=== PATIENT | female | born 1990 | race Caucasian/White ===

== ENCOUNTER 2019-09-14 08:12 | Emergency (ER) | payer SELFPAY ==
--- NOTE | ~2019-09-14 | CT_ITS ---
EXAMINATION: CT abdomen pelvis w con DATE: 09/14/2019 09:38 INDICATION: Right-sided abdominal pain TECHNIQUE: Computed tomography (CT) of the abdomen and pelvis was performed with 100 cc Omnipaque 350 intravenous contrast. The dose-length product was 1586.14 mGy-cm. Automated exposure control and ite rative reconstruction technique were employed. COMPARISON: CT dated 04/13/2014 FINDINGS: Patchy bilateral lower lobe airspace disease. Heart size normal. No significant pleural or pericardial effusion. Gallbladder is distended with gallstones. No significant biliary dilatation. The liver, spleen, pancr eas, adrenal glands and kidneys are unremarkable. Normal appendix. Nonobstructive bowel gas pattern. There are mildly prominent ileocolic mesenteric lymph nodes, likely reactive. No free air or free flu id. No significant vascular abnormality. Normal appendix. IMPRESSION: 1. Cholelithiasis with mild gallbladder distention. Consider cholecystitis in the appropriate clinica l setting. 2: Bibasilar airspace disease which may represent atelectasis or developing pneumonia. Reviewed, dictated and finalized at location A. IMPRESSION: 1. Cholelithiasis with mild gallbladder distention. Consider cholecystitis in t he appropriate clinical setting. 2: Bibasilar airspace disease which may represent atelectasis or developing pne umonia.
[2019-09-14 08:16] VITALS: BP 155/97; PULSE 89; RESP 20; TEMP 36.8; O2SAT 100
--- NOTE | 2019-09-14 08:16 | ED.ABDPAIN ---
HPI - Abdominal Pain General Chief Complaint: Abdominal Pain Stated Complaint: Abd pain Time Seen by Provider: 09/14/19 08:16 History of Present Illness HPI narrative: Awoken from sleep by right sided abdominal pain this morning. The pain is severe. Feels like a cramp or sore muscle. The pain is severe. Associated with vomiting x1. She has never had this pain before. No previous abdominal surgery. She denies any active medical problems or home medications. Related Data Allergies Allergy/AdvReac Type Severity Reaction Status Date / Time No Known Allergies Allergy Unverified 09/14/19 08:20 Review of Systems Review of Systems: All systems reviewed & are unremarkable except as noted in HPI and below Constitutional: Constitutional: Denies fever(s) Eyes: Eyes: Reports no additional eye complaints ENT: Reports system reviewed and no additional complaints, except as documented Cardiovascular: Cardiovascular: Denies chest pain Respiratory: Respiratory: Denies dyspnea Gastrointestinal: Gastrointestinal: Reports abdominal pain, Denies constipation, Denies diarrhea, Reports nausea and Reports vomiting Genitourinary: Genitourinary: Denies hematuria and Denies dysuria Musculoskeletal: Musculoskeletal: Reports back pain Neurologic: Denies dizziness and Denies weakness Endocrine: Endocrine: Denies polydipsia and Denies polyuria Exam Const: General: alert Nutritional Appearance: obese Orientation/consciousness: patient oriented x3 Other: Mild distress, tearful HENMT: Head: normal to inspection Resp: Effort & Inspection: normal respiratory effort Auscultation: clear to auscultation bilaterally Cardio: Rate: regular rate Rhythm: regular rhythm GI: GI Palp: Yes Soft to palpation, No Tenderness to palpation present (GI) and No Guarding due to palpation present (GI) Skin: General skin exam: normal color Neuro: General: patient oriented x3, moves all extremities and no focal motor deficits Speech: normal speech Extrem: General: normal to inspection Psych: Affect: Anxious affect present Course Vital Signs Vital signs: Vital Signs Temperature 36.8 C 09/14/19 08:16 Pulse Rate 89 09/14/19 08:16 Respiratory Rate 20 09/14/19 08:16 Blood Pressure 155/97 H 09/14/19 08:16 Pulse Oximetry 100 09/14/19 08:16 Temperature 36.6 C 09/14/19 11:00 Pulse Rate 71 09/14/19 11:00 Respiratory Rate 16 09/14/19 11:00 Blood Pressure 121/89 09/14/19 11:00 Pulse Oximetry 99 09/14/19 11:00 MDM - Abdominal Pain MDM Narrative Medical decision making narrative: CT shows dilation of the gallbladder with stones. No elevation in white count or fever. Discussed admission versus symptomatic treatment, low fat diet and surgery follow-up. She said that she would prefer to go home. Differential Diagnosis Differential diagnosis: Likely acute appendicitis, calculus of kidney, pancreatitis and other (Acute cholecystitis, cholelithiasis, ) Medical Records Attestation: I reviewed the patient's medical records. Lab Data Attestation: I reviewed the patient's lab results. Result diagrams: 09/14/19 08:36 09/14/19 08:36 Labs: Lab Results 09/14/19 09/14/19 09/14/19 Range/Units 08:36 08:36 09:01 WBC 9.6 (4.5-10.0) K/mm3 RBC 4.49 (4.2-5.4) M/mm3 Hgb 12.6 (12.0-15.0) g/dL Hct 39.9 (37.0-47.0) % MCV 88.9 (80-100) fl MCH 28.1 (26-34) pg MCHC 31.6 L (32-36) g/dl RDW 12.9 (11.5-14.5) % Plt Count 363 (150-375) k/mm3 MPV 9.9 (7.4-10.4) fl Immature Gran % (Auto) 0.3 (0-0.5) % Neut % (Auto) 64.5 (45.5-73.1) % Lymph % (Auto) 26.1 (18.3-44.2) % [place] % (Auto) 6.5 (2.6-8.5) % Eos % (Auto) 2.1 (0-4.4) % Baso % (Auto) 0.5 (0.2-1.2) % Lymph # (Auto) 2.49 (0.9-3.2) K/mm3 [place] # (Auto) 0.6 (0.1-0.6) K/mm3 Eos # (Auto) 0.2 (0-0.3) K/mm3 Baso # (Auto) 0.1 (0.0-0.1) K/mm3 Abs Immat Gran (auto) 0.03
[2019-09-14] MEDS: ONDANSETRON INJ 4 MG/2 ML VIAL IV PUSH (08:35)
[2019-09-14 08:43] LABS: Basophils Absolute Auto 0.1 K/mm3 (0.0-0.1); Basophils Percent Auto 0.5 % (0.2-1.2); Eosinophils Absolute Auto 0.2 K/mm3 (0-0.3); Eosinophils Percent Auto 2.1 % (0-4.4); Hematocrit 39.9 % (37.0-47.0); Hemoglobin 12.6 g/dL (12.0-15.0); Immature Granulocyte Absolute 0.03 K/mm3 (0.00-0.031); Immature Granulocyte Percent A 0.3 % (0-0.5); Lymphocytes Absolute Auto 2.49 K/mm3 (0.9-3.2); Lymphocytes Percent Auto 26.1 % (18.3-44.2); Mean Corpuscular HGB Conc 31.6 g/dl (32-36); Mean Corpuscular Hemoglobin 28.1 pg (26-34); Mean Corpuscular Volume 88.9 fl (80-100); Mean Platelet Volume 9.9 fl (7.4-10.4); Monocytes Absolute Auto 0.6 K/mm3 (0.1-0.6); Monocytes Percent Auto 6.5 % (2.6-8.5); Neutrophils Absolute Auto 6.2 K/mm3 (1.3-6.7); Neutrophils Percent Auto 64.5 % (45.5-73.1); Platelet Count Result 363 k/mm3 (150-375); Red Blood Count 4.49 M/mm3 (4.2-5.4); Red Cell Distribution Width 12.9 % (11.5-14.5); White Blood Count 9.6 K/mm3 (4.5-10.0)
[2019-09-14 08:55] LABS: Alanine Aminotransferase 12 U/L (4-35); Albumin Level 4.2 g/dL (3.5-5.1); Alkaline Phosphatase 66 U/L (38-126); Aspartate Amino Transferase 18 U/L (14-36); Bilirubin,Total 0.2 mg/dL (0.2-1.3); Blood Urea Nitrogen 16 mg/dL (7-17); Calcium 8.9 mg/dL (8.4-10.2); Carbon Dioxide 26 mmol/L (22-30); Chloride 105 mmol/L (98-107); Estimated CRCL calculation 142 ml/min; Estimated Glomerular Filt Rate > 60; Glucose 114 mg/dL (65-105); Lipase 86 U/L (23-300); Potassium 4.1 mmol/L (3.4-5.0); Sodium 137 mmol/L (137-145)
[2019-09-14 09:12] LABS: Add Urine Microscopic? YES; Appearance Urine Cloudy (Clear); Bacteria Urine Trace /hpf; Bilirubin Urine Negative (Negative); Blood Urine Negative (Negative); Color Urine Yellow (Yellow); Glucose Urine UA Negative (Negative); Ketones Urine Negative (Negative); Leukocyte Esterase Ur 3+ LEU/UL (Negative); Mucus Urine Rare /lpf; Nitrate Urine Negative (Negative); Protein Urine 1+ mg/dL (Negative); Specific Grav Ur 1.025 (1.001-1.035); Squamous Epithelial Cell Urine Many /hpf (Few); Urobilinogen Urine Negative mg/dL (<2.0); WBC Urine 16-20 /hpf
[2019-09-14 09:48] VITALS: BP 112/67; PULSE 98; RESP 20; O2SAT 97
[2019-09-14] MEDS: MORPHINE SULFATE 4 MG/ML INJ IV PUSH (09:58)
[2019-09-14 11:00] VITALS: BP 121/89; PULSE 71; RESP 16; TEMP 36.6; O2SAT 99
== END 2019-09-14 11:00 | disposition home or self-care (01) ==
PROVIDERS: Emergency Provider Emergency Medicine
DX: K80.20 Calculus of gallbladder without cholecystitis without obstruction (principal); R91.8 Other nonspecific abnormal finding of lung field
CPT/HCPCS: 36415; 74177; 80053; 81001; 81025; 83690; 85025; 87086; 87088; 96374; 96375; 99284; J2270; J2405; J3010; Q9967

== ENCOUNTER 2019-11-17 10:37 | Emergency (ER) | payer SELFPAY ==
--- NOTE | 2019-11-17 11:08 | ED.GENADULT ---
HPI - General Adult General Chief complaint: Eye Problems Stated complaint: eye issues Time Seen by Provider: 11/17/19 11:20 Source: patient Mode of arrival: ambulatory Limitations: no limitations History of Present Illness HPI narrative: 29-year-old female patient presents to the [facility] with complaints of acute left eye pain. Patient states that she got into her car in her garage and went to go and pull out and as soon as the light hit her left eye she immediately started having pain, watering and a lot of sensitivity to light. Patient states that she does wear contacts and put a new set in about a week ago. Patient states that she did take out her contacts hoping that that would decrease her symptoms but states that her symptoms have not gotten any better. Patient states she has had a lot of pain, causing a headache, watery eyes and a lot of sensitivity to the light. Related Data Home Medications Medication Instructions Recorded Confirmed No Home Medications 11/17/19 11/17/19 Allergies Allergy/AdvReac Type Severity Reaction Status Date / Time No Known Allergies Allergy Verified 11/17/19 11:06 Review of Systems Review of Systems: Narrative: CONSTITUTIONAL: Denies fever, chills, or sweats. EYES: Positive left eye visual changes, redness, pain and clear discharge. ENT: Denies rhinorrhea, congestion, sore throat, or otalgia. CARDIOVASCULAR: Denies chest pain, palpitations, or edema. RESPIRATORY: Denies cough or dyspnea. GASTROINTESTINAL: Denies abdominal pain, nausea, vomiting, or diarrhea. GENITOURINARY: Denies dysuria or hematuria. SKIN: Denies rash or itching. MUSCULOSKELETAL: Denies back pain, joint pain, or myalgia. NEUROLOGIC: Denies headache, numbness, or weakness. PSYCHIATRIC: Denies anxiety or depression. [facility] Surgical History Surgical History History of tonsillectomy Family History Family History Unknown Hypertension Diabetes mellitus Cerebrovascular accident Social History Social History Smoking status: Never smoker Alcohol intake: current Additional occupation/education comments: self-employed Gender identity (if verbalized by the patient): Male Comments At the time of my signature I agree with nursing past medical history, surgical, social, and family history. There is no relevant family history pertinent to the presenting complaint. Exam Narrative: Exam Narrative: GENERAL: Well-appearing, well-nourished, and in no acute distress. HEAD: Normocephalic, atraumatic. EYES: PERRLA and EOM intact without limitation of have complaint of pain to the left eye, no periorbital soft tissue swelling ,no erythema, warmth or tenderness noted, no obvious deformity. No crusting or swelling.clear tearing from left eye.severe and painful photophobia. No nystagmus No FB or lesion on lid eversion. Corneas grossly clear, no obvious FB or hyphens/hypopyon. injection to sclera. Lids and lashes clear. The left eye was dyed and there was no obvious corneal abrasions or foreign body noted under the Browning lamp. ENT: Nares clear, no rhinorrhea or epistaxis. Mucous membranes moist. NECK: Supple. No lymphadenopathy CHEST: Clear to auscultation. No respiratory distress. HEART: Regular rate and rhythm. No murmur heard. Normal peripheral pulses. ABDOMEN: Soft, nontender, nondistended, normal active bowel sounds. EXTREMITIES: Normal range of motion. No edema. SKIN: Warm, dry, no rash. NEURO: No focal deficits. Alert and oriented x3. Course Vital Signs Vital signs: Vital Signs Temperature 36.2 C L 11/17/19 11:17 Pulse Rate 88 11/17/19 11:17 Respiratory Rate 16 11/17/19 11:17 Blood Pressure 120/78 11/17/19 11:17 Pulse Oximetry 98 11/17/19 11:17 Temperature 36.2 C L 11/17/19 11:17 Pulse Rate 88 11/17/19 11:17 Respirato
[2019-11-17 11:17] VITALS: BP 120/78; PULSE 88; RESP 16; TEMP 36.2; O2SAT 98
== END 2019-11-17 11:42 | disposition home or self-care (01) ==
PROVIDERS: Emergency Provider Nurse Practitioner Family
DX: H57.12 Ocular pain, left eye (principal)
CPT/HCPCS: 99213; A9270; G0463

== ENCOUNTER 2019-11-17 12:06 | Emergency (ER) | payer SELFPAY ==
[2019-11-17 12:08] VITALS: BP 152/90; PULSE 66; RESP 18; TEMP 36.4; O2SAT 100
[2019-11-17] MEDS: SODIUM CHLORIDE 0.9% IV 500 ML 999 ML IV CONT (13:26)
[2019-11-17] MEDS: METOCLOPRAMIDE HCL INJ 10 MG/2 ML VIAL IV PUSH (13:27)
[2019-11-17] MEDS: KETOROLAC 30 MG/ML VIAL (*BKC) IV PUSH (13:27)
--- NOTE | 2019-11-17 13:36 | ED.EYEPROB ---
HPI - Eye Problem General Chief complaint: Eye Problems <Capri Dick PA-C - Last Filed: 11/17/19 15:27> Stated complaint: eye problems <Capri Dick PA-C - Last Filed: 11/17/19 15:27> Time Seen by Provider: 11/17/19 12:45 <Capri Dick PA-C - Last Filed: 11/17/19 15:27> Source: patient <Capri Dick PA-C - Last Filed: 11/17/19 15:27> Mode of arrival: ambulatory <Capri Dick PA-C - Last Filed: 11/17/19 15:27> Limitations: no limitations <Capri Dick PA-C - Last Filed: 11/17/19 15:27> History of Present Illness HPI Narrative: This is a 29 year old female that presents to the ER for left eye pain since this morning. Reports burning and irritation in the eye. Reports tearing. Reports she wears contacts and took them out this morning. Denies any injury to the eye. Also reports she started to develop a migraine. Denies fever, vision changes, or vomiting. <Capri Dick PA-C - Last Filed: 11/17/19 15:27> Related Data Allergies/adverse reactions: Allergies Allergy/AdvReac Type Severity Reaction Status Date / Time No Known Allergies Allergy Verified 11/17/19 12:07 <Capri Dick PA-C - Last Filed: 11/17/19 15:27> Review of Systems Review of Systems: Narrative: CONSTITUTIONAL: Denies fever EYES: Reports redness and discharge. Denies visual changes GASTROINTESTINAL: Denies vomiting NEUROLOGIC: Denies headache, numbness, or weakness. <Capri Dick PA-C - Last Filed: 11/17/19 15:27> All systems reviewed & are unremarkable except as noted in HPI and below <Capri Dick PA-C - Last Filed: 11/17/19 15:27> [facility] Past Medical History Medical History: Medical History (Updated 11/17/19 @ 15:24 by Capri Dick PA-C) History of migraine <Capri Dick PA-C - Last Filed: 11/17/19 15:27> Surgical History Surgical History: Surgical History History of tonsillectomy <Capri Dick PA-C - Last Filed: 11/17/19 15:27> Social History Social History: Social History Smoking status: Never smoker Alcohol intake: current Additional occupation/education comments: self-employed Gender identity (if verbalized by the patient): Female <[employer] Last Filed: 11/17/19 15:27> Exam Narrative: Exam Narrative: GENERAL: Well-appearing, well-nourished, and in no acute distress. HEAD: Normocephalic, atraumatic. EYES: PERRLA and EOMI. eyelid everted, no foreign bodies noted. Left eye with tearing and mild conjunctival injection. Positive fluorescein stain uptake in the left eye with a small corneal abrasion ENT: Nares clear, no rhinorrhea or epistaxis. Mucous membranes moist. Oropharynx without tonsillar hypertrophy exudate or other lesions. Bilateral TMs pearly joe non-bulging NECK: Supple. No adenopathy or masses. EXTREMITIES: Normal range of motion. No edema. SKIN: Warm, dry, no rash. NEURO: No focal deficits. Alert and oriented x3. PSYCH: Normal mood and affect <[employer] Last Filed: 11/17/19 15:27> Course Vital Signs Vital signs: Vital Signs Temperature 97.6 F 11/17/19 12:08 Pulse Rate 66 11/17/19 12:08 Respiratory Rate 18 11/17/19 12:08 Blood Pressure 152/90 H 11/17/19 12:08 Pulse Oximetry 100 11/17/19 12:08 Temperature 97.6 F 11/17/19 12:08 Pulse Rate 66 11/17/19 12:08 Respiratory Rate 18 11/17/19 12:08 Blood Pressure 152/90 H 11/17/19 12:08 Pulse Oximetry 100 11/17/19 12:08 <[employer] Last Filed: 11/17/19 15:27> Vital Signs Temperature 97.6 F 11/17/19 12:08 Pulse Rate 66 11/17/19 12:08 Respiratory Rate 18 11/17/19 12:08 Blood Pressure 152/90 H 11/17/19 12:08 Pulse Oximetry 100 11/17/19 12:08 Temperature 97.6 F 11/17/19 12:08 Pulse Rate 66 11/17/19 12:08 Respiratory Rate 18 0
== END 2019-11-17 15:41 | disposition home or self-care (01) ==
PROVIDERS: Emergency Provider General Practice
DX: S05.02XA Injury of conjunctiva and corneal abrasion without foreign body, left eye, initial encounter (principal); G43.909 Migraine, unspecified, not intractable, without status migrainosus; X58.XXXA Exposure to other specified factors, initial encounter
CPT/HCPCS: 96361; 96374; 96375; 99284; A9270; J0131; J1200; J1885; J2765; J7040

== ENCOUNTER 2020-10-13 10:35 | Observation (INO) | payer MEDICAID, SELFPAY ==
[2020-10-13] VITALS (14 sets, daily range): BP systolic 99–139; BP diastolic 51–103; PULSE 56–88; RESP 12–21; TEMP 36.2–37.1; O2SAT 97–100; BMI 50.3
--- NOTE | ~2020-10-13 | CT_ITS ---
EXAMINATION: CT abdomen pelvis w con DATE: 10/13/2020 13:32 INDICATION: Right upper quadrant abdominal pain. Nausea. TECHNIQUE: Computed tomography (CT) of the abdomen and pelvis was performed with 100 mL Omnipaque 350 intravenous contrast. Automated exposure control and iterative reconstruction technique were employe d. The dose-length product was 1563.14 mGy-cm. COMPARISON: CT abdomen and pelvis 09/14/2019 FINDINGS: The visualized portions of the lung bases demonstrate mild atelectasis. No pleural effusion . The heart size is normal. No pericardial effusion. The liver and spleen are normal. The gallbladder is normal in size and contains gallstones. Gallbladder wall thickening is noted. The pancreas, adren al glands, and kidneys are normal. There are no dilated loops of bowel. The appendix is normal. There is a small sliding hiatal hernia. There are no pathologically enlarged lymph nodes. There is no free intraperitoneal fluid. The bones are unremarkable. IMPRESSION: 1. Cholelithiasis. Gallbladder wall thickening may be secondary to acute or chronic cholecystitis. 2. Small sliding hiatal hernia. Reviewed, dictated and finalized at location B. IMPRESSION: 1. Cholelithiasis. Gallbladder wall thickening may be secondary to acute or chr onic cholecystitis. 2. Small sliding hiatal hernia.
[2020-10-13 11:38] LABS: Basophils Absolute Auto 0.1 K/mm3 (0.0-0.1); Basophils Percent Auto 0.6 % (0.2-1.2); Eosinophils Absolute Auto 0.1 K/mm3 (0-0.3); Eosinophils Percent Auto 1.1 % (0-4.4); Hematocrit 41.5 % (37.0-47.0); Hemoglobin 13.3 g/dL (12.0-15.0); Immature Granulocyte Absolute 0.03 K/mm3 (0.00-0.031); Immature Granulocyte Percent A 0.3 % (0-0.5); Lymphocytes Absolute Auto 2.22 K/mm3 (0.9-3.2); Lymphocytes Percent Auto 23.1 % (18.3-44.2); Mean Corpuscular Hemoglobin 28.5 pg (26-34); Mean Corpuscular Volume 89.1 fl (80-100); Mean Platelet Volume 9.8 fl (7.4-10.4); Monocytes Absolute Auto 0.5 K/mm3 (0.1-0.6); Monocytes Percent Auto 5.3 % (2.6-8.5); Neutrophils Absolute Auto 6.7 K/mm3 (1.3-6.7); Neutrophils Percent Auto 69.6 % (45.5-73.1); Platelet Count Result 346 k/mm3 (150-375); Red Blood Count 4.66 M/mm3 (4.2-5.4); Red Cell Distribution Width 13.5 % (11.5-14.5); White Blood Count 9.6 K/mm3 (4.5-10.0)
[2020-10-13 11:49] LABS: Alanine Aminotransferase 14 U/L (4-35); Albumin Level 4.2 g/dL (3.5-5.1); Alkaline Phosphatase 58 U/L (38-126); Anion Gap 6 mmol/L (8-16); Aspartate Amino Transferase 29 U/L (14-36); Bilirubin,Total 0.3 mg/dL (0.2-1.3); Blood Urea Nitrogen 13 mg/dL (7-17); Carbon Dioxide 28 mmol/L (22-30); Chloride 106 mmol/L (98-107); Estimated CRCL calculation 158 ml/min; Estimated Glomerular Filt Rate > 60; Glucose 99 mg/dL (65-105); Lipase 52 U/L (23-300); Potassium 4.4 mmol/L (3.4-5.0); Sodium 140 mmol/L (137-145)
[2020-10-13 13:15] LABS: Add Urine Microscopic? YES; Appearance Urine Clear (Clear); Bacteria Urine Trace /hpf; Bilirubin Urine Negative (Negative); Blood Urine Negative (Negative); Color Urine Yellow (Yellow); Glucose Urine UA Negative (Negative); Ketones Urine Negative (Negative); Leukocyte Esterase Ur Trace LEU/UL (Negative); Mucus Urine Rare /lpf; Nitrate Urine Negative (Negative); Protein Urine 1+ mg/dL (Negative); RBC Urine 0-2 /hpf (0-2); Specific Grav Ur 1.021 (1.001-1.035); Squamous Epithelial Cell Urine Few /hpf (Few); Urobilinogen Urine Negative mg/dL (<2.0)
--- NOTE | 2020-10-13 13:15 | ED.ABDPAIN ---
HPI - Abdominal Pain General Chief Complaint: Abdominal Pain Stated Complaint: abd pain Time Seen by Provider: 10/13/20 11:47 Source: patient Mode of arrival: ambulatory Limitations: no limitations History of Present Illness HPI narrative: Patient is 30 year old female who presents complaining of RUQ pain. She reports pain awakened her from sleep this am. She also reports nausea. Patient reports having episode of same last year and was seen by Dr. Butler. Patient reports she is unable to get comfortable at this time despite position changes. She denies . She denies all other complaints. MD elicited complaint: abdominal pain Related Data Home Medications Medication Instructions Recorded Confirmed No Home Medications 10/13/20 10/13/20 Allergies Allergy/AdvReac Type Severity Reaction Status Date / Time No Known Allergies Allergy Verified 10/13/20 16:00 Review of Systems Review of Systems: Narrative: CONSTITUTIONAL: Denies fever, chills, or sweats. EYES: Denies visual changes, redness, or discharge. ENT: Denies rhinorrhea, congestion, sore throat, or otalgia. CARDIOVASCULAR: Denies chest pain, palpitations, or edema. RESPIRATORY: Denies cough or dyspnea. GASTROINTESTINAL: Right upper abdominal pain and nausea starting this a.m. GENITOURINARY: Denies dysuria or hematuria. SKIN: Denies rash or itching. MUSCULOSKELETAL: Denies back pain, joint pain, or myalgia. NEUROLOGIC: Denies headache, numbness, dizziness, or weakness. PSYCHIATRIC: Denies anxiety or depression. 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 Please see nursing chart for further information. There is no relevant family history pertinent to the presenting complaint. Exam Narrative: Exam Narrative: GENERAL: Well-appearing, well-nourished, and in no acute distress. HEAD: Normocephalic, atraumatic. EYES: EOMI. No redness or drainage. Conjunctiva are normal. ENT: Mucous membranes pink and moist. CHEST: No respiratory distress. Clear to auscultation. HEART: Regular rate and rhythm. No murmur appreciated. Normal peripheral pulses. GI: Soft, nontender without rebound, or guarding. No distention. Bowel sounds normal in all quadrants. MUSCULOSKELETAL: No bony tenderness. EXTREMITIES: Normal range of motion. NEURO: No focal deficits. Alert and oriented x3. Gait steady. PSYCH: Normal affect. No signs of depression or anxiety. Course Consultations Consultation #1: Discussed patient with Dr. Dewitt. Dr. Dewitt to take patient to the OR at this time for laparoscopic cholecystectomy. Date: 10/13/20 Time: 14:48 Vital Signs Vital signs: Vital Signs Temperature 37.1 C 10/13/20 10:39 Pulse Rate 88 10/13/20 10:39 Respiratory Rate 20 10/13/20 10:39 Blood Pressure 133/103 H 10/13/20 10:39 Pulse Oximetry 100 10/13/20 10:39 Temperature 36.6 C 10/13/20 17:11 Pulse Rate 58 L 10/13/20 18:45 Respiratory Rate 14 10/13/20 18:45 Blood Pressure
[2020-10-13] MEDS: ONDANSETRON INJ 4 MG/2 ML VIAL IV PUSH ×2 (13:56→19:49)
[2020-10-13] MEDS: MORPHINE SULFATE (*CRX) 4 MG/ML INJ IV PUSH ×3 (13:56→19:49)
[2020-10-13] MEDS: SODIUM CHLORIDE 0.9% IV 1,000 ML 999 ML IV CONT (13:56)
--- NOTE | 2020-10-13 15:12 | PM.IMHP ---
H&P: HPI History of Present Illness Date/Time: 10/13/20 15:12 Chief Complaint: RUQ abdominal pain Narrative: This is a 30-year-old obese female who presented to the ER with complaints of right upper quadrant abdominal pain. She has been dealing with intermittent right upper quadrant abdominal pain for the last 3 years that has become progressively more frequent. She was actually seen in the ER about 1 year ago with similar symptoms and was found to have cholelithiasis with gallbladder distention on her CT scan of the abdomen and pelvis. Her pain improved and she opted to go home and follow-up outpatient with our service. She discussed surgical options and due to lack of insurance, she decided to follow a low fat diet and monitor her symptoms. Over the past year, she has dealt with right upper quadrant abdominal pain, nausea, and vomiting intermittently a few times a week. She does not feel it correlates with meals but is unsure. Last night, she ate pizza for dinner and went to bed asymptomatic. She had a sudden onset of right upper quadrant abdominal pain that woke her from sleep around 3:00 am this morning. The pain was more severe than what she typically deals with and it was persistent without alleviating factors. Due to the unrelenting pain, she presented to the ER for further evaluation. CT scan of the abdomen and pelvis showed cholelithiasis with gallbladder wall thickening and a small sliding hiatal hernia. Labs were unremarkable with a normal white blood cell count and LFTs. Her abdominal pain persisted in the ER even after the IV Morphine. The ER provider contacted our service for surgical evaluation and she is now seen in the ER. She reports still having abdominal pain and nausea. No other complaints at this time. She is currently eating a Keto diet to work on weight loss. No previous abdominal surgeries. Review of Systems Review of Systems: All systems reviewed & are unremarkable except as noted in HPI and below Constitutional: Constitutional: Reports as per HPI, Denies chills, Denies fatigue and Denies fever(s) Eyes: Eyes: Reports no additional eye complaints and Denies change in vision ENT: Reports system reviewed and no additional complaints, except as documented, Reports Normal hearing present and Denies dizziness Cardiovascular: Cardiovascular: Reports no additional cardiovascular complaints, Denies chest pain, Denies leg edema and Denies dyspnea Respiratory: Respiratory: Reports no additional respiratory complaints, Denies cough and Denies dyspnea Gastrointestinal: Gastrointestinal: Reports as per HPI, Reports no additional gastrointestinal complaints, Reports abdominal pain (RUQ r/t back), Denies change in bowel habits, Denies constipation, Denies diarrhea, Reports nausea and Reports vomiting Genitourinary: Genitourinary: Denies hematuria and Denies dysuria Musculoskeletal: Musculoskeletal: Denies abnormal gait, Denies deformity, Denies joint swelling, Denies numbness, Denies tingling and Reports other (chronic low back and neck pain) Integumentary/Breasts: Skin/Breast: Denies wounds and Denies jaundice Neurologic: Reports system reviewed and no additional complaints, except as documented, Denies abnormal gait, Denies dizziness, Denies focal weakness, Denies numbness and Denies tingling Psychiatric: Psychiatric: Denies anxiety and Denies depression [facility] Past Medical History Medical History History of migraine Surgical History Surgical History History of tonsillectomy Family History Family History Unknown Hypertension Diabetes mellitus Cerebrovascular accident Mother Gallbladder disease Grandparent Gallbladder disease Social History Social History Smoking status: Never smoker Alcohol
--- NOTE | 2020-10-13 15:13 | WPDANESEPPF ---
Anes - Initial Pre Proc Eval Procedure: Operation Date: 10/13/20 15:30 Proposed Procedures p Laparoscopic Cholecystectomy - Fan Dewitt MD Date/Time: 10/13/20 15:13 Surgeon: Fan Dewitt MD Pre Op Diagnosis: abd pain Patient Data Age: 30 Gender: F Height: 1.65 m Weight: 130.6 kg Last Vital Signs Temp 37.1 C 10/13/20 10:39 Pulse 88 10/13/20 10:39 Resp 20 10/13/20 10:39 BP 133/103 H 10/13/20 10:39 Pulse Ox 100 10/13/20 10:39 Allergies Allergy/AdvReac Type Severity Reaction Status Date / Time No Known Allergies Allergy Verified 10/13/20 11:33 Home Medications Medication Instructions Recorded Confirmed Type No Home Medications 10/13/20 10/13/20 History Laboratory Tests 10/13/20 10/13/20 10/13/20 11:31 11:31 12:56 WBC 9.6 K/mm3 K/mm3 (4.5-10.0) RBC 4.66 M/mm3 M/mm3 (4.2-5.4) Hgb 13.3 g/dL g/dL (12.0-15.0) Hct 41.5 % % (37.0-47.0) MCV 89.1 fl fl (80-100) MCH 28.5 pg pg (26-34) MCHC 32.0 g/dl g/dl (32-36) RDW 13.5 % % (11.5-14.5) Plt Count 346 k/mm3 k/mm3 (150-375) MPV 9.8 fl fl (7.4-10.4) Immature Gran % (Auto) 0.3 % % (0-0.5) Neut % (Auto) 69.6 % % (45.5-73.1) Lymph % (Auto) 23.1 % % (18.3-44.2) [place] % (Auto) 5.3 % % (2.6-8.5) Eos % (Auto) 1.1 % % (0-4.4) Baso % (Auto) 0.6 % % (0.2-1.2) Lymph # (Auto) 2.22 K/mm3 K/mm3 (0.9-3.2) [place] # (Auto) 0.5 K/mm3 K/mm3 (0.1-0.6) Eos # (Auto) 0.1 K/mm3 K/mm3 (0-0.3) Baso # (Auto) 0.1 K/mm3 K/mm3 (0.0-0.1) Abs Immat Gran (auto) 0.03 K/mm3 K/mm3 (0.00-0.031) Absolute Neuts (auto) 6.7 K/mm3 K/mm3 (1.3-6.7) Absolute Nucleated RBC 0.0 K/mm3 K/mm3 (0.0-0.012) Nucleated RBC % 0.0 % % (0.0-0.2) Sodium 140 mmol/L mmol/L (137-145) Potassium 4.4 mmol/L mmol/L (3.4-5.0) Chloride 106 mmol/L mmol/L (98-107) Carbon Dioxide 28 mmol/L mmol/L (22-30) Anion Gap 6 mmol/L L mmol/L (8-16) BUN 13 mg/dL mg/dL (7-17) Creatinine 0.60 mg/dL L mg/dL (0.7-1.0) Estim Creat Clear Calc 158 ml/min ml/min Estimated GFR > 60 (59 - ) Glucose 99 mg/dL mg/dL (65-105) Calcium 9.0 mg/dL mg/dL (8.4-10.2) Total Bilirubin 0.3 mg/dL mg/dL (0.2-1.3) AST 29 U/L U/L (14-36) ALT 14 U/L U/L (4-35) Alkaline Phosphatase 58 U/L U/L (38-126) Total Protein 8.0 g/dL g/dL (6.3-8.2) Albumin 4.2 g/dL g/dL (3.5-5.1) Lipase 52 U/L U/L (23-300) Urine Color Yellow (Yellow) Urine Appearance Clear (Clear) Urine pH 6.0 (5.0-9.0) Ur Specific [place] 1.021 (1.001-1.035) Urine Protein 1+ mg/dL H mg/dL (Negative) Urine Glucose (UA) Negative mg/dL mg/dL (Negative) Urine Ketones Negative mg/dL mg/dL (Negative) Ur Blood (Man) Negative (Negative) Urine Nitrate Negative (Negative) Urine Bilirubin Negative (Negative) Urine Urobilinogen Negative mg/dL mg/dL (<2.0) Leukocyte Esterase Rfl Trace RUPESH/UL H RUPESH/UL (Negative) Urine RBC 0-2 /hpf /hpf (0-2) Urine WBC 4-6 /hpf H /hpf Ur Squamous Epith Cells Few /hpf /hpf (Few) Urine Bacteria Trace /hpf /hpf Urine Mucus Rare /lpf /lpf Patient hx anesthesia problems: none Family hx anesthesia problems: none [facility] Past Medical History Medical History History of migraine Surgical History Surgical History History of tonsillectomy Family History Family
--- NOTE | 2020-10-13 16:00 | WPDHPUPDATE1 ---
History and Physical Update Update Date/Time: 10/13/20 16:00 History and Physical has been reviewed, including an updated exam of the patient. There are NO changes in the patient's condition. Risks, benefits, and alternatives have been discussed and questions answered. Patient agrees to proceed with procedure.
[2020-10-13] MEDS: BUPIVACAINE/EPINEPHRINE 0.5% 30 ML VIAL INFILTRATE (16:11)
[2020-10-13] MEDS: LACTATED RINGERS 1,000 ML 30 ML IV CONT ×2 (17:11→18:00)
[2020-10-13] MEDS: fentaNYL CITRATE INJ (*CRX) 100 MCG/2 ML VIAL 25 MCG IV PUSH ×8 (17:22→18:17)
--- NOTE | 2020-10-13 17:27 | PM.PROC ---
Procedure Note - Detailed Date of procedure: 10/13/20 Pre-op diagnosis: Acute cholecystitis, cholelithiasis Acute cholecystitis, cholelithiasis Post-op diagnosis: same Procedure performed: Laparoscopic cholecystectomy Description of procedure: The patient was taken to surgery and induced into general anesthesia. The abdomen was prepped and draped. Trocars were placed in the usual fashion using 0.5% Marcaine with epinephrine and applied Medical optical trocars. A 5 millimeter camera was used. There were adhesions of the omentum to the gallbladder. These were largely inflammatory adhesions. The gallbladder was tensely distended with a thickened wall and evidence of edema in the wall all consistent with acute inflammation. The gallbladder was decompressed with a laparoscopic aspirator. The cholecystotomy was closed with a Vicryl endo-loop. The gallbladder was retracted anterosuperiorly. Adhesions to the gallbladder were taken down so that the cholecystohepatic triangle was exposed. There were numerous adhesions of the gallbladder as we retracted it anterosuperiorly. Eventually it was retracted enough that we could expose the infundibulum. Traction was placed on the infundibulum. The cystic duct and cystic artery were dissected out very clearly. This was much more difficult as there was a lot of acute inflammation in the cholecystohepatic triangle as well. Cautery was used for hemostasis. The dissection went well but was difficult with the inflammation. There were numerous gallstones in the gallbladder as well. The gallbladder was dissected off the liver at its lower 3rd. Critical view was achieved. We securely clipped and divided the cystic duct and cystic artery. The gallbladder was then further retracted so that the peritoneal attachments to the liver could be divided. There was evidence of inflammation here with edema and hypervascularity. Cautery was used for much of the dissection. No entry into the gallbladder was made during the dissection. No injury to the liver was made. Eventually we freed the gallbladder from the liver. Once the gallbladder was freed entirely, it was placed in an Endo-Catch bag and retrieved through the 10 11 epigastric trocar site. Because the gallbladder was full of stones and had a very thickened wall, it was much too large to be retrieved through the epigastric trocar site without significant enlargement of the site. I dilated the site and also increased the size of the skin incision. I also increased the fascial opening. Eventually we were able to extricate the gallbladder from the epigastric trocar site. The epigastric trocar was then replaced. A towel clip was used to occlude the skin and subcutaneous so that we could reinsufflated. We reviewed the right upper quadrant. It was thoroughly irrigated and suctioned. Some additional cautery was used on the gallbladder fossa. Repeated irrigation and suction worry carried out. Eventually all looked good with no evidence of bleeding or bile leakage. I then used the Clif cone and Clif-Julio César suture pass device to close the fascia at the epigastric trocar site. We evacuated CO2 and removed the trocar sleeves. The fascia at the epigastric trocar site was closed with 0 Vicryl suture by suturing the anterior rectus fascia as well. Skin wounds were closed with subcuticular 4 O Monocryl skin suture. The wounds were dressed with Exofin surgical adhesive. Patient was awakened and taken to recovery in good condition. Sponge and needle counts were correct x2. Anesthesia: GETA and local (0.5% Marcaine with epinephrine) Surgeon: Fan Dewitt MD [facility] Recruiting Coordinator: Guicho GEIGER Estimated blood loss (mL): 25 Drains: No Packing: No Pathology: yes (Gallbladder) Complications: None Condition: stable Disposition: PACU Findings: Mostly acute but some chronic inflammation, several gallstones noted. No biliary ductal dilatation, no liver abnormalities.
[2020-10-13] MEDS: HYDROmorphone HCL INJ (*CRX) 1 MG/ML SYR 0.5 MG IV PUSH ×2 (18:28→18:38)
[2020-10-13] MEDS: KETOROLAC 30 MG/ML VIAL (*BKC) IV PUSH (18:28)
--- NOTE | 2020-10-13 19:23 | ADMGEN ---
This patient, Michelle Minaya, was admitted to Medical [facility] at 1900. Patient/family oriented to hospital policies and general routines including ID bracelet, bed and alarms, visiting hours, pain management, procedures, bathroom and other care routines, personal items, smoking policy, room service/diet, and visiting hours. Information on how to activate the Rapid Response Team has been discussed. Patient/Family are encouraged to report perceived risks to care and to ask questions if they do not understand what they are told or what they should do.
[2020-10-13] MEDS: LACTATED RINGERS 1,000 ML 100 ML IV CONT (19:50)
[2020-10-13] MEDS: ENOXAPARIN 30 MG/0.3 ML SYRINGE SUB-Q (20:36)
[2020-10-13] MEDS: FAMOTIDINE 20 MG/2 ML VIAL IV PUSH (20:36)
[2020-10-14] MEDS: HYDROcodone/acetaminophen (*CRX) 10-325 MG TABLET 1 TAB PO ×2 (02:50→08:25)
[2020-10-14] MEDS: ONDANSETRON INJ 4 MG/2 ML VIAL IV PUSH ×3 (03:41→13:37)
[2020-10-14] MEDS: MORPHINE SULFATE (*CRX) 2 MG/ML INJ IV PUSH (03:41)
[2020-10-14] MEDS: LACTATED RINGERS 1,000 ML 100 ML IV CONT (05:13)
[2020-10-14 05:48] LABS: Hematocrit 34.7 % (37.0-47.0); Hemoglobin 11.3 g/dL (12.0-15.0); Mean Corpuscular HGB Conc 32.6 g/dl (32-36); Mean Corpuscular Hemoglobin 28.3 pg (26-34); Mean Corpuscular Volume 86.8 fl (80-100); Mean Platelet Volume 9.8 fl (7.4-10.4); Platelet Count Result 293 k/mm3 (150-375); Red Cell Distribution Width 13.3 % (11.5-14.5); White Blood Count 13.5 K/mm3 (4.5-10.0)
[2020-10-14 06:00] VITALS: BP 103/58; PULSE 64; RESP 21; TEMP 36.8; O2SAT 100
[2020-10-14 06:11] LABS: Anion Gap 3 mmol/L (8-16); Blood Urea Nitrogen 9 mg/dL (7-17); Calcium 8.6 mg/dL (8.4-10.2); Carbon Dioxide 28 mmol/L (22-30); Chloride 105 mmol/L (98-107); Estimated CRCL calculation 163 ml/min; Estimated Glomerular Filt Rate > 60; Glucose 135 mg/dL (65-105); Potassium 4.4 mmol/L (3.4-5.0); Sodium 136 mmol/L (137-145)
[2020-10-14] MEDS: FAMOTIDINE 20 MG/2 ML VIAL IV PUSH (08:12)
[2020-10-14] MEDS: ENOXAPARIN 30 MG/0.3 ML SYRINGE SUB-Q (08:14)
[2020-10-14 08:26] VITALS: BP 126/76; PULSE 60
--- NOTE | 2020-10-14 10:32 | PM.DS ---
DS: Admitting Diagnosis Admitting Diagnosis Admitting Diagnosis: Acute cholecystitis, cholelithiasis morbid obesity DS: Discharge Diagnosis Discharge Diagnosis (1) Acute cholecystitis due to biliary calculus: Code(s): K80.00 - Calculus of gallbladder with acute cholecystitis without obstruction Status: Acute (2) Morbid obesity with BMI of 45.0-49.9, adult: Code(s): E66.01 - Morbid (severe) obesity due to excess calories; Z68.42 - Body mass index [BMI] 45.0-49.9, adult Status: Chronic DS: Summary Hospital Course Hospital Course: patient is a 30-year-old woman who came to the emergency room with complaints of severe right upper quadrant abdominal pain. She had experience this over a year ago and had actually seen my partner regarding gallbladder disease and right upper quadrant pain. Although recommended to have laparoscopic cholecystectomy, she opted to try a low-fat diet and forego surgery. Although supposedly following a louise toe diet, the patient had some pizza for dinner 2 nights ago and had abrupt onset of severe right upper quadrant abdominal pain about 3:00 a.m. yesterday morning. She has had several episodes of this since her original diagnosis but this was particularly severe and unrelenting. She eventually came to the emergency room. Despite narcotic analgesics she could not get comfortable. Her white count was 9600. Liver enzymes were unremarkable. CT scan showed evidence of acute coli cystitis with gallstones. She was taken to surgery yesterday in the late afternoon by Dr. clark. Laparoscopic cholecystectomy was performed. She was noted at surgery to have acute cholecystitis with multiple large stones in the gallbladder. The surgery went well. She was kept overnight for observation. She did have some nausea and vomiting but this has improved. She is comfortable now on oral analgesics and is discharged on oral antibiotics and analgesics in improved condition. Status at Discharge Functional status at discharge: independent ambulation Overall status at discharge: patient is progressing back to baseline Time Spent with Patient Time attestation: Total time spent providing and/or coordinating discharge services: Time spent: Less than 30 minutes Exam Const: General: comfortable and no acute distress; No confusion Orientation/consciousness: patient oriented x3 and No confusion GI: Inspection: non-distended and incision ( All incisions healing well) GI Palp: Yes Soft to palpation, Yes Tenderness to palpation present (GI) ( appropriate upper abdominal incisional tenderness), No Guarding due to palpation present (GI) and No Rebound tenderness present Auscultation: normal bowel sounds Neuro: General: patient oriented x3, no focal motor deficits and No confusion Psych: Affect: normal affect Insight: Good insight present (Psych) Judgement: Good judgement present (Psych) DS: Data Data Completed and Pending Pending studies at discharge: Pending at discharge 10/13/20 16:10 Surgical [PTH] Routine Labs on day of discharge: Labs from last 24 hours 10/14/20 10/14/20 10/13/20 05:43 05:43 12:56 WBC 13.5 H RBC 4.00 L Hgb 11.3 L Hct 34.7 L MCV 86.8 MCH 28.3 MCHC 32.6 RDW 13.3 Plt Count 293 MPV 9.8 Immature Gran % (Auto) Neut % (Auto) Lymph % (Auto) Fisher % (Auto) Eos % (Auto) Baso % (Auto) Lymph # (Auto) Fisher # (Auto) Eos # (Auto) Baso # (Auto) Abs Immat Gran (auto) Absolute Neuts (auto) Absolute Nucleated RBC Nucleated RBC % Sodium 136 L Potassium 4.4 Chloride 105 Carbon Dioxide 28 Anion Gap 3 L BUN 9 Creatinine 0.60 L Estim Creat Clear Calc 163 Estimated GFR > 60 Glucose 135 H Calcium 8.6 Total Bilirubin AST ALT Alkaline Phosphatase Total Protein Albumin Lipase Urine Color Yellow Urine Appearance Clear Urine pH 6.0 Ur Specific
[2020-10-14] MEDS: HYDROcodone/acetaminophen (*CRX) 5-325 MG TABLET 1 TAB PO (13:36)
== END 2020-10-14 14:52 | disposition home or self-care (01) ==
LOC: ANHED 14:52 → ANHSURGERY 14:56 → ANH2MED 18:52
PROVIDERS: Emergency Medicine; Admitting Provider Surgery; Emergency Provider Nurse Practitioner; Visit Provider Surgery
PROC: 0FT44ZZ Resection of Gallbladder, Percutaneous Endoscopic Approach (ICD-10-PCS; CPT 47562; principal; 2020-10-13 15:30)
DX: K80.10 Calculus of gallbladder with chronic cholecystitis without obstruction (principal); E66.01 Morbid (severe) obesity due to excess calories; Z68.43 Body mass index [BMI] 50.0-59.9, adult; K82.8 Other specified diseases of gallbladder
CPT/HCPCS: 47562; 36415; 74177; 80048; 80053; 81001; 81025; 83690; 85025; 85027; 88304; 96361; 96374; 96375; 96376; 99285; A9270; C1713; G0378; G0379; J0131; J0330; J1100; J1170; J1650; J1885; J2250; J2270; J2405; J2543; J2704; J2710; J3010; J7030; J7120; Q9967

== ENCOUNTER 2021-01-23 12:47 | Emergency (ER) | payer OTHER, SELFPAY ==
[2021-01-23 12:58] VITALS: BP 135/93; PULSE 117; RESP 20; TEMP 38; O2SAT 100
--- NOTE | 2021-01-23 13:55 | ED.URI ---
HPI - URI/Sore Throat General Chief Complaint: Upper Respiratory Infection Stated Complaint: HEADACHE/SORE THROAT/SOB/COUGH Time Seen by Provider: 01/23/21 13:55 Source: patient and RN notes reviewed Mode of arrival: ambulatory Limitations: no limitations History of Present Illness HPI Narrative: 30-year-old female presents to the [facility] with headache for 2 weeks, this morning started with generalized body aches, hot and cold chills, feverish and cough lots of mucus and sinus congestion. Denies any past medical history. Denies being vaccinated by Covid or having Covid in the past. Related Data Allergies Allergy/AdvReac Type Severity Reaction Status Date / Time No Known Allergies Allergy Verified 01/23/21 13:37 Review of Systems Review of Systems: All systems reviewed & are unremarkable except as noted in HPI and below Constitutional: Constitutional: Reports as per HPI, Reports chills, Reports fatigue and Reports fever(s) Eyes: Eyes: Reports no additional eye complaints ENT: Reports system reviewed and no additional complaints, except as documented Cardiovascular: Cardiovascular: Reports no additional cardiovascular complaints Respiratory: Respiratory: Reports no additional respiratory complaints, Denies cough and Denies dyspnea Gastrointestinal: Gastrointestinal: Reports no additional gastrointestinal complaints, Denies abdominal pain, Denies nausea and Denies vomiting Musculoskeletal: Musculoskeletal: Reports as per HPI and Reports myalgias Integumentary/Breasts: Skin/Breast: Reports system reviewed and no additional complaints, except as docu Neurologic: Reports as per HPI and Reports headache(s) Psychiatric: Psychiatric: Reports no additional psychiatric complaints Allergic/Immunologic: Allergic/Immunologic: Reports no additional allergic/immunologic complaints [facility] Past Medical History Medical History History of migraine Surgical History Surgical History History of tonsillectomy Hx laparoscopic cholecystectomy Family History Family History Unknown Hypertension Diabetes mellitus Cerebrovascular accident Mother Gallbladder disease Grandparent Gallbladder disease Social History Social History Smoking status: Never smoker Alcohol intake: never Substance use: never Substance use type: does not use Additional living arrangements comments: with boyfriend and three non-biological children Additional occupation/education 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 There is no relevant family history pertinent to the patient complaint. Exam Const: General: alert and ill appearing acutely (Appears mildly acutely ill, nontoxic) Nutritional Appearance: well nourished and obese Orientation/consciousness: patient oriented x3 Limitations: no limitations HENMT: Head: normal to inspection Ears: external ears normal, TM's normal bilaterally and EAC's normal Eyes: Conjunctivae: conjunctivae normal Pupils: Equal, round and reactive pupils present EOM: EOMs intact bilaterally Direct Ophthalmoscopy: no photophobia Neck: Neck: normal visual inspection, no lymphadenopathy and no meningeal signs Chest: Chest palpation & inspection: normal inspection of the chest Resp: Effort & Inspection: normal respiratory effort and no use of accessory muscles Auscultation: clear to auscultation bilaterally, no crackles, no rales, no rhonchi and no wheezes Cardio: Rate: regular rate Rhythm: regular rhythm GI: GI Palp: Yes Soft to palpation and No Tenderness to palpation present (GI) :
[2021-01-23 14:20] VITALS: TEMP 38.1
[2021-01-23] MEDS: ACETAMINOPHEN 500 MG TABLET 1000 MG PO (14:20)
[2021-01-23 14:31] VITALS: TEMP 38.1
[2021-01-24 19:41] LABS: SARS-CoV-2 RNA PCR Positive
== END 2021-01-23 14:30 | disposition home or self-care (01) ==
PROVIDERS: Emergency Provider Nurse Practitioner
DX: U07.1 COVID-19 (principal)
CPT/HCPCS: 99213; A9270; C9803; G0463; U0003; U0005

== ENCOUNTER 2021-01-30 10:02 | Inpatient (IN) | payer OTHER, SELFPAY ==
[2021-01-30] VITALS (15 sets, daily range): BP systolic 104–125; BP diastolic 61–87; PULSE 81–100; RESP 16–33; TEMP 36.6–37.3; O2SAT 92–96; BMI 48.9
--- NOTE | 2021-01-30 | ECG_ITS ---
Measurements Intervals [place] Rate: 99 P: 31 FL: 139 QRS: 80 QRSD: 93 T: 23 QT: 340 QTc: 436 Interpretive Statements SINUS RHYTHM BORDERLINE T WAVE ABNORMALITY- ANT/INF LEADS BASELINE ARTIFACT- I, II, III, AVR, AVL, AVF, V3-V6 BORDERLINE ECG Electronically Signed On 01-30-2021 14:34:29 CDT by Shay Fry D.O.
--- NOTE | ~2021-01-30 | CT_ITS ---
EXAMINATION: CTA chest PE protocol EXAM DATE: 01/30/2021 13:28 INDICATION: cp, sob, covid +, elevated dimer . TECHNIQUE: Spiral CTA of the chest (pulmonary arteries) was performed with 100 cc Omnipaque 350 intr avenous contrast injection. Images were acquired during the pulmonary arterial phase. Coronal maxi mum intensity projection 3D-reconstructions were created by the technologist on dedicated workstation . Axial, coronal and sagittal reformatted images were reviewed. The dose-length product (DLP) for t his examination was 909.56 mGy-cm. The exposure was tailored according to patient size (auto mA exp osure control), and iterative reconstruction (ASIR) was used as additional dose reduction technique. Correlation is made to chest x-ray earlier same date. FINDINGS: There are no pulmonary emboli in the 1st through 3rd order (central and interlobar) pulmon rom arteries. Some loss of attenuation in the left basilar segmental pulmonary from respiratory griffin on, these regions not confidently evaluated. No Intraluminal filling defects identified. No thoraci c aortic dissection. Moderate amount of patchy bilateral groundglass airspace disease, appearance co nsistent with acute stage COVID pneumonia. There are no pleural or pericardial effusions. Tracheob ronchial tree is patent. There is no mediastinal, hilar or axillary lymphadenopathy. There is no pneumothorax. Heart normal in size. No evidence of coronary arterial calcification. There are ch olecystectomy clips. There is thoracic spondylosis without osteoblastic or osteolytic lesions identi fied. IMPRESSION: 1. Limited left basilar segmental evaluation, but no pulmonary emboli are suspected. 2. Moderate amount of COVID pneumonia. Reviewed, dictated and finalized at location B. IMPRESSION: 1. Limited left basilar segmental evaluation, but no pulmonary emboli are susp ected. 2. Moderate amount of COVID pneumonia.
--- NOTE | ~2021-01-30 | US_ITS ---
EXAMINATION: US venous doppler [facility] DATE: 01/30/2021 13:51 INDICATION: Shortness of breath TECHNIQUE: Billy scale images without and with compression and Doppler images of the bilateral lower e xtremity veins were obtained. COMPARISON: None FINDINGS: The right common femoral vein, profunda femoral vein, femoral vein, popliteal vein, peroneal trunk, p osterior tibial veins, and greater saphenous vein are patent. The left common femoral vein, profunda femoral vein, femoral vein, popliteal vein, peroneal trunk, po sterior tibial veins, and greater saphenous vein are patent. IMPRESSION: 1. Patent bilateral lower extremity veins. No evidence of deep venous thrombosis. Reviewed, dictated and finalized at location A. IMPRESSION: 1. Patent bilateral lower extremity veins. No evidence of deep venous thrombosi s.
--- NOTE | ~2021-01-30 | XR_ITS ---
EXAMINATION: XR chest 1V portable INDICATION: Shortness of breath TECHNIQUE: Portable AP chest at 1013 hours COMPARISON: 07/20/2005 FINDINGS: There are diffuse opacities throughout all lung zones. No pleural effusion or pneumothorax is identified. The cardiomediastinal silhouette is normal. The visualized osseous structures are unre markable. IMPRESSION: 1. Diffuse lung disease, likely COVID 19 pneumonia. Reviewed, dictated and finalized at location A.
--- NOTE | 2021-01-30 11:13 | ED.SOB ---
HPI - SOB/Dyspnea General Chief Complaint: Shortness of Breath/Dyspnea Stated Complaint: DIFFICULTY BREATHING,COVID + Time Seen by Provider: 01/30/21 10:35 Source: patient Mode of arrival: EMS Limitations: no limitations History of Present Illness HPI Narrative: This is a 30 year old female that presents to the ER for cold symptoms ongoing over the last week. Reports fever, headache, cough, congestion, sore throat, chest pain, shortness of breath and myalgias. She was seen at [facility] and had a covid swab that came back positive one week ago. Denies abdominal pain or dysuria. Related Data Allergies Allergy/AdvReac Type Severity Reaction Status Date / Time No Known Allergies Allergy Verified 01/30/21 10:15 Review of Systems Review of Systems: CONSTITUTIONAL: Denies fever, chills, or sweats. EYES: Denies visual changes, redness, or discharge. ENT: Denies rhinorrhea, congestion, sore throat, or otalgia. CARDIOVASCULAR: Denies chest pain, palpitations, or edema. RESPIRATORY: Denies cough or dyspnea. GASTROINTESTINAL: Denies abdominal pain, nausea, vomiting, or diarrhea. GENITOURINARY: Denies dysuria or hematuria. SKIN: Denies rash or itching. MUSCULOSKELETAL: Denies back pain, joint pain, or myalgia. NEUROLOGIC: Denies headache, numbness, or weakness. PSYCHIATRIC: Denies anxiety or depression. All systems reviewed & are unremarkable except as noted in HPI and below PMFSH Past Medical History Medical History History of migraine Surgical History Surgical History History of tonsillectomy Hx laparoscopic cholecystectomy Family History Family History Unknown Hypertension Diabetes mellitus Cerebrovascular accident Mother Gallbladder disease Grandparent Gallbladder disease Social History Social History Smoking status: Never smoker Alcohol intake: never Substance use: never Substance use type: does not use Additional living arrangements comments: with boyfriend and three non-biological children Additional occupation/education 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 HEAD: Normocephalic, atraumatic. EYES: EOMI. ENT: Nares clear, no rhinorrhea or epistaxis. Mucous membranes moist. Oropharynx without tonsillar hypertrophy exudate or other lesions. Bilateral TMs pearly joe non-bulging NECK: Supple. No adenopathy or masses. CHEST: Rales noted in the mid and lower lung zones. No respiratory distress. No wheezes or rhonchi HEART: Regular rate and rhythm. No murmur heard. Normal peripheral pulses. ABDOMEN: Soft, nontender, nondistended, normal active bowel sounds. EXTREMITIES: Normal range of motion. No edema. SKIN: Warm, dry, no rash. NEURO: No focal deficits. Alert and oriented x3. PSYCH: Normal mood and affect Course Consultations Consultation #1: Spoke with hospitalist about patient and work-up who accepts admission. Date: 01/30/21 Time: 15:29 Vital Signs Vital signs: Vital Signs Temperature 98.6 F 01/30/21 10:10 Pulse Rate 96 01/30/21 10:10 Respiratory Rate 26 H 01/30/21 10:10 Blood Pressure 118/68 01/30/21 10:10 Pulse Oximetry 95 01/30/21 10:10 Temperature 98.6 F 01/30/21 10:10 Pulse Rate 81 01/30/21 16:01 Respiratory Rate 27 H 01/30/21 16:01 Blood Pressure 104/61 01/30/21 16:01 Pulse Oximetry 93 01/30/21 16:01 MDM - SOB/Dyspnea MDM Narrative Medical decision making narrative: Patient presents to the emergency department for cold symptoms over the last week. Tested positive for coronavirus a week ago. She is unvaccinated. Was noted to be hypoxic upon EMS arrival. Patient i
[2021-01-30] MEDS: diphenhydrAMINE HCl INJ 50 MG/ML VIAL 25 MG IV PUSH (11:39)
[2021-01-30] MEDS: DEXAMETHASONE SOD PHOS INJ 4 MG/ML VIAL 6 MG IV PUSH (11:39)
[2021-01-30] MEDS: METOCLOPRAMIDE HCL INJ 10 MG/2 ML VIAL IV PUSH (11:39)
[2021-01-30 12:04] LABS: Basophils Percent Auto 0.2 % (0.2-1.2); Hemoglobin 14.6 g/dL (12.0-15.0); Immature Granulocyte Absolute 0.01 K/mm3 (0.00-0.031); Immature Granulocyte Percent A 0.2 % (0-0.5); Lymphocytes Absolute Auto 0.54 K/mm3 (0.9-3.2); Lymphocytes Percent Auto 11.9 % (18.3-44.2); Mean Corpuscular HGB Conc 32.4 g/dl (32-36); Mean Corpuscular Hemoglobin 28.6 pg (26-34); Mean Corpuscular Volume 88.2 fl (80-100); Mean Platelet Volume 9.9 fl (7.4-10.4); Monocytes Absolute Auto 0.2 K/mm3 (0.1-0.6); Neutrophils Absolute Auto 3.8 K/mm3 (1.3-6.7); Neutrophils Percent Auto 83.7 % (45.5-73.1); Platelet Count Result 198 k/mm3 (150-375); Red Cell Distribution Width 13.2 % (11.5-14.5); White Blood Count 4.5 K/mm3 (4.5-10.0)
[2021-01-30 12:20] LABS: Anion Gap 9 mmol/L (8-16); Blood Urea Nitrogen 14 mg/dL (7-17); Calcium 8.5 mg/dL (8.4-10.2); Carbon Dioxide 31 mmol/L (22-30); Chloride 98 mmol/L (98-107); Estimated CRCL calculation 121 ml/min; Estimated Glomerular Filt Rate > 60; Glucose 111 mg/dL (65-110); Potassium 3.6 mmol/L (3.4-5.0); Sodium 138 mmol/L (137-145)
[2021-01-30 12:21] LABS: INR 0.9; Prothrombin Time 12.2 Seconds (11.1-14.7)
[2021-01-30 12:22] LABS: Partial Thromboplastin Time 29.1 SECONDS (22.3-36.8)
[2021-01-30 12:24] LABS: D Dimer 0.71 ug/mL (<0.48)
[2021-01-30 12:27] LABS: Alanine Aminotransferase 29 U/L (4-35); Albumin Level 4.3 g/dL (3.5-5.1); Alkaline Phosphatase 68 U/L (38-126); Aspartate Amino Transferase 46 U/L (14-36); Bilirubin,Total 0.5 mg/dL (0.2-1.3); Lactate Dehydrogenase 926 U/L (313-618)
[2021-01-30 12:39] LABS: Troponin I < 0.012 ng/mL (0.000-0.034)
[2021-01-30 13:20] LABS: Procalcitonin 0.1 ng/mL
--- NOTE | 2021-01-30 13:21 | PC.NURSE ---
SpO2 82% on RA after walking to bathroom. Oxygen continued at 4l/min NC.
[2021-01-30] MEDS: REMDESIVIR 200 MG/NS 250 ML 200 MG/250 ML BAG 250 MG IVPB (13:58)
[2021-01-30] MEDS: KETOROLAC 30 MG/ML VIAL (*BKC) IV PUSH (13:58)
[2021-01-30] MEDS: SODIUM CHLORIDE 0.9% IV 500 ML 999 ML IV CONT (13:58)
--- NOTE | 2021-01-30 14:21 | PC.NURSE ---
updated on status and orders per pt request.
--- NOTE | 2021-01-30 16:21 | PM.IMHP ---
H&P: HPI History of Present Illness Date/Time: 01/30/21 16:21 this is a 30-year-old female patient who came to the emergency room due to cold symptoms over the last week. The patient tested positive for COVID-19 1 week ago. The patient remains on vaccinated. She has had fever, headaches, cough, congestion, sore throat, shortness of breath and myalgias. Patient stated that she is nauseated now. Patient's ferritin is 159. LDH is 926. The patient was given Reglan, Benadryl, IV Tylenol, Decadron, remdesivir, Toradol, and IV fluids. CT of the chest was read as limited left basilar segmental evaluation, but no pulmonary emboli are suspected. Moderate amount of COVID pneumonia. Venous Dopplers patent bilateral lower extremity veins. No evidence of any deep vein thrombosis. D-dimer 0.71. The patient is being admitted for observation status on the date of service of 01/30/2021. Chief Complaint: Shortness of breath Review of Systems Review of Systems: All systems reviewed & are unremarkable except as noted in HPI and below Constitutional: Constitutional: Reports as per HPI and Reports no additional constitutional complaints Eyes: Eyes: Reports as per HPI and Reports no additional eye complaints ENT: Reports system reviewed and no additional complaints, except as documented and Reports Normal hearing present Cardiovascular: Cardiovascular: Reports no additional cardiovascular complaints Respiratory: Respiratory: Reports no additional respiratory complaints and Reports no additional respiratory complaints Gastrointestinal: Gastrointestinal: Reports as per HPI and Reports no additional gastrointestinal complaints Musculoskeletal: Musculoskeletal: Reports no additional musculoskeletal complaints Integumentary/Breasts: Skin/Breast: Reports system reviewed and no additional complaints, except as docu and Reports as per HPI Neurologic: Reports system reviewed and no additional complaints, except as documented, Reports as per HPI and Reports Normal hearing present Psychiatric: Psychiatric: Reports no additional psychiatric complaints and Reports as per HPI Endocrine: Endocrine: Reports no additional endocrine complaints Hematologic/Lymphatic: Hematologic/Lymphatic: Reports no additional hematologic/lymphatic complaints Allergic/Immunologic: Allergic/Immunologic: Reports no additional allergic/immunologic complaints [facility] Past Medical History Medical History History of migraine Surgical History Surgical History History of tonsillectomy Hx laparoscopic cholecystectomy Family History Family History Unknown Hypertension Diabetes mellitus Cerebrovascular accident Mother Gallbladder disease Grandparent Gallbladder disease Social History Social History (Updated 01/30/21 @ 16:31 by Jessica Zambrano NP) Social History: The patient lives with her boyfriend who she desires to have the durable power trademark attorney for healthcare or her dad either 1. The patient desires to be a full code. The patient has no biological children. She never smoked. She denies any alcohol marijuana or illicit drugs. 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
--- NOTE | 2021-01-30 17:32 | ADMGEN ---
This patient, Michelle Minaya, was admitted to [facility] Surg Room [id number]. Patient/family oriented to hospital policies and general routines including ID bracelet, bed and alarms, visiting hours, pain management, procedures, bathroom and other care routines, personal items, smoking policy, room service/diet, and visiting hours. Information on how to activate the Rapid Response Team has been discussed. Patient/Family are encouraged to report perceived risks to care and to ask questions if they do not understand what they are told or what they should do.
[2021-01-30] MEDS: ACETAMINOPHEN 325 MG TABLET 650 MG PO (20:44)
[2021-01-31] VITALS (11 sets, daily range): BP systolic 110–131; BP diastolic 51–97; PULSE 68–90; RESP 18–28; TEMP 35.9–37.2; O2SAT 87–96
[2021-01-31 07:19] LABS: Basophils Percent Auto 0.2 % (0.2-1.2); Hematocrit 40.9 % (37.0-47.0); Hemoglobin 13.1 g/dL (12.0-15.0); Immature Granulocyte Absolute 0.03 K/mm3 (0.00-0.031); Immature Granulocyte Percent A 0.7 % (0-0.5); Lymphocytes Absolute Auto 0.93 K/mm3 (0.9-3.2); Lymphocytes Percent Auto 21.8 % (18.3-44.2); Mean Corpuscular Volume 87.4 fl (80-100); Mean Platelet Volume 9.9 fl (7.4-10.4); Monocytes Absolute Auto 0.3 K/mm3 (0.1-0.6); Monocytes Percent Auto 6.1 % (2.6-8.5); Neutrophils Percent Auto 71.2 % (45.5-73.1); Platelet Count Result 229 k/mm3 (150-375); Red Blood Count 4.68 M/mm3 (4.2-5.4); Red Cell Distribution Width 13.2 % (11.5-14.5); White Blood Count 4.3 K/mm3 (4.5-10.0)
[2021-01-31 07:39] LABS: INR 0.9; Prothrombin Time 12.2 Seconds (11.1-14.7)
[2021-01-31 08:09] LABS: Alanine Aminotransferase 23 U/L (4-35); Albumin Level 3.8 g/dL (3.5-5.1); Alkaline Phosphatase 54 U/L (38-126); Anion Gap 9 mmol/L (8-16); Aspartate Amino Transferase 40 U/L (14-36); Bilirubin,Total 0.4 mg/dL (0.2-1.3); Blood Urea Nitrogen 18 mg/dL (7-17); CRP 3.2 mg/dL (<1.0); Calcium 8.1 mg/dL (8.4-10.2); Carbon Dioxide 26 mmol/L (22-30); Chloride 103 mmol/L (98-107); Estimated CRCL calculation 159 ml/min; Estimated Glomerular Filt Rate > 60; Glucose 119 mg/dL (65-110); Lactate Dehydrogenase 884 U/L (313-618); Magnesium 2.4 mg/dL (1.6-2.3); Potassium 3.6 mmol/L (3.4-5.0); Sodium 138 mmol/L (137-145)
[2021-01-31] MEDS: ENOXAPARIN 40 MG/0.4 ML SYRINGE SUB-Q (08:31)
[2021-01-31] MEDS: ONDANSETRON INJ 4 MG/2 ML VIAL IV PUSH (08:32)
[2021-01-31] MEDS: guaiFENesin/DEXTROMETHORPHAN 10 ML UDC PO (08:32)
[2021-01-31 09:13] LABS: Thyroid Stimulating Hormone Reflex 0.742 uIU/mL (0.465-4.68)
[2021-01-31] MEDS: ACETAMINOPHEN 325 MG TABLET 650 MG PO (09:17)
[2021-01-31] MEDS: ALBUTEROL SULFATE (*SP) INHALER 2 PUFF INHALATION (09:18)
[2021-01-31] MEDS: REMDESIVIR 100 MG/NS 250 ML 100 MG/250 ML BAG 250 MG IVPB (10:32)
[2021-01-31] MEDS: ALBUTEROL SULFATE (*SP) AEROSOL 1 PUFF 2 PUFF INHALATION ×3 (12:40→20:36)
[2021-01-31] MEDS: ALBUTEROL SULFATE (*SP) INHALER 1 PUFF (12:41)
--- NOTE | 2021-01-31 16:17 | PM.IMPN ---
Progress Note: A&P Assessment and Plan (1) Acute respiratory failure due to COVID-19: Code(s): U07.1 - COVID-19; J96.00 - Acute respiratory failure, unspecified whether with hypoxia or hypercapnia Status: Acute Assessment and Plan: The patient is a 30 year old woman with no chronic medical conditions, who presented with SOB, body aches since 01/23/21 and tested positive for COVID 19. Symptoms continued to be worse and called EMS who found her to be 87% on RA. She was placed on oxygen and brought to the ER for further evaluation. Initial vitals showed stable blood pressure to 118/68, heart rate 96, increased respiratory rate 26, afebrile, 95% on 3 L via nasal cannula. Initial labs showed normal CBC with differential, normal coag panel other than elevated D-dimer at 0.71. Glucose elevated 111. Found to have elevated ferritin, LDH and CRP levels. She was admitted into the hospital for COVID pneumonia and acute respiratory failure with hyponatremia and placed on IV Remdesivir and dexamethasone. Patient is currently on 6 L via nasal cannula with a pulse ox of 95%. She is to continue on dexamethasone and IV Remdesivir (#2) Ordered for her to have IV convalescent plasma Incentive spirometer Antitussives p.r.n., antipyretics p.r.n. Continue weaning oxygen as needed Albuterol inhaler q.i.d. and p.r.n. Lovenox subQ daily for DVT prophylaxis Continue monitoring in wean oxygen as tolerated. The patient was not vaccinated for COVID. (2) Pneumonia due to COVID-19 virus: Code(s): U07.1 - COVID-19; J12.82 - Pneumonia due to coronavirus disease 2019 Status: Acute Assessment and Plan: See above Time Spent With Patient Time with patient: 25 - 35 minutes Subjective Date/time seen: 01/31/21 16:17 Interval history: Date of service 01/31/2021: Patient reports still having shortness of breath, chest pain when taking a deep breath and with coughing, dry cough. She reports some tenderness to palpation of her lower legs, and states that there are just achy . She denies any fevers, chills, nausea, vomiting, abdominal pain, or any other symptoms at this time. Review of Systems Review of Systems: All systems reviewed & are unremarkable except as noted in HPI and below Exam Narrative: General: 30-year-old woman sitting up in bed talking on the phone. Appears comfortable on 6L via NC. In no acute distress. Skin: No jaundice or cyanosis. Good skin turgor. Neck: Full range of motion. Supple. Respiratory: Decreased lung sound bilaterally. No bony chest wall tenderness. Cardiovascular: The heart has a regular rate and rhythm without murmur. Lower extremities: No lower extremity edema. Distal pulses are easily palpated. No calf tenderness to palpation. negative Mccormick's sign. Gastrointestinal: The abdomen is soft, nontender and nondistended with active bowel sounds. Psychiatric: Lucid and oriented. Memory intact. Neurologic: No focal deficits. Speech is clear. No facial drooping. Objective Data Vital Signs Vital Signs: Vital Signs - 24 hr 01/30/21 17:15 01/30/21 17:20 01/30/21 17:25 Temperature 97.8 F Pulse Rate 86 83 Respiratory Rate 26 H 16 Blood Pressure 110/72 119/69 Pulse Oximetry 94 92 92 01/30/21 18:39 01/30/21 20:00 01/30/21 22:00 Temperature 98.3 F 99.2 F Pulse Rate 82 83 Respiratory Rate 18 20 Blood Pressure 125/67 124/72 Pulse Oximetry 94 93 92 01/31/21 00:00 01/31/21 04:00 01/31/21 08:00 Temperature 99.0 F 98.1 F Pulse Rate 77 71 70 Respiratory Rate 18 24 H Blood Pressure 114/97 H 125/72 Pulse Oximetry 87 L 93 01/31/21 08:30 01/31/21 12:00 01/31/21 16:00 Temperature 97.3 F L 98.7 F 98.8 F Pulse Rate 79 90 71 Respiratory Rate 28 H 24 H 24 H Blood Pressure 129/72 120/70 131/69 Pulse Oximetry 96 92 95 Intake/Output Intake/Output: Intake & Output 01/28/21 01/29/21 01/30/21 01/31/21 23:5
[2021-01-31] MEDS: SODIUM CHLORIDE NASAL GEL 14.1 GM 1 APPLIC NASAL (20:14)
[2021-02-01] VITALS (12 sets, daily range): BP systolic 97–124; BP diastolic 55–79; PULSE 60–74; RESP 16–20; TEMP 35.7–36.6; O2SAT 90–97
[2021-02-01] MEDS: BENZOCAINE/MENTHOL (*BKC) 18 EA LOZENGE 1 LOZENGE PO (06:31)
[2021-02-01] MEDS: guaiFENesin/DEXTROMETHORPHAN 10 ML UDC PO ×3 (06:33→21:28)
[2021-02-01] MEDS: ACETAMINOPHEN 325 MG TABLET 650 MG PO ×2 (06:34→21:19)
[2021-02-01 06:39] LABS: Hematocrit 40.5 % (37.0-47.0); Hemoglobin 12.7 g/dL (12.0-15.0); Mean Corpuscular HGB Conc 31.4 g/dl (32-36); Mean Corpuscular Volume 89.2 fl (80-100); Mean Platelet Volume 9.8 fl (7.4-10.4); Platelet Count Result 231 k/mm3 (150-375); Red Blood Count 4.54 M/mm3 (4.2-5.4); White Blood Count 6.2 K/mm3 (4.5-10.0)
[2021-02-01 06:58] LABS: INR 0.9; Prothrombin Time 12.5 Seconds (11.1-14.7)
[2021-02-01 07:09] LABS: Alanine Aminotransferase 19 U/L (4-35); Albumin Level 3.5 g/dL (3.5-5.1); Alkaline Phosphatase 47 U/L (38-126); Anion Gap 5 mmol/L (8-16); Aspartate Amino Transferase 36 U/L (14-36); Bilirubin,Total 0.3 mg/dL (0.2-1.3); Blood Urea Nitrogen 16 mg/dL (7-17); CRP 1.6 mg/dL (<1.0); Carbon Dioxide 30 mmol/L (22-30); Chloride 102 mmol/L (98-107); Estimated CRCL calculation 159 ml/min; Estimated Glomerular Filt Rate > 60; Glucose 113 mg/dL (65-110); Potassium 3.8 mmol/L (3.4-5.0); Sodium 137 mmol/L (137-145)
[2021-02-01 08:41] LABS: Hemoglobin A1C 5.5 % (<5.7)
[2021-02-01] MEDS: ENOXAPARIN 40 MG/0.4 ML SYRINGE SUB-Q (09:56)
[2021-02-01] MEDS: REMDESIVIR 100 MG/NS 250 ML 100 MG/250 ML BAG 250 MG IVPB (09:56)
[2021-02-01] MEDS: ALBUTEROL SULFATE (*SP) AEROSOL 1 PUFF 2 PUFF INHALATION ×3 (10:12→20:28)
[2021-02-01] MEDS: ALBUTEROL SULFATE (*SP) INHALER 2 PUFF INHALATION (13:36)
--- NOTE | 2021-02-01 14:57 | PM.IMPN ---
Progress Note: A&P Assessment and Plan (1) Acute respiratory failure due to COVID-19: Code(s): U07.1 - COVID-19; J96.00 - Acute respiratory failure, unspecified whether with hypoxia or hypercapnia Status: Acute Assessment and Plan: The patient is a 30 year old woman with no chronic medical conditions, who presented with SOB, body aches since 01/23/21 and tested positive for COVID 19. Symptoms continued to be worse and called EMS who found her to be 87% on RA. She was placed on oxygen and brought to the ER for further evaluation. Initial vitals showed stable blood pressure to 118/68, heart rate 96, increased respiratory rate 26, afebrile, 95% on 3 L via nasal cannula. Initial labs showed normal CBC with differential, normal coag panel other than elevated D-dimer at 0.71. Glucose elevated 111. Found to have elevated ferritin, LDH and CRP levels. She was admitted into the hospital for COVID pneumonia and acute respiratory failure with hyponatremia and placed on IV Remdesivir and dexamethasone. Patient is currently on 4 L via nasal cannula with a pulse ox of 95%. She is to continue on dexamethasone and IV Remdesivir (#3) She did receive IV convalescent plasma 01/31/21 x1 Incentive spirometer Antitussives p.r.n., antipyretics p.r.n. Continue weaning oxygen as needed Albuterol inhaler q.i.d. and p.r.n. Lovenox subQ daily for DVT prophylaxis Continue monitoring in wean oxygen as tolerated. The patient was not vaccinated for COVID. (2) Pneumonia due to COVID-19 virus: Code(s): U07.1 - COVID-19; J12.82 - Pneumonia due to coronavirus disease 2019 Status: Acute Assessment and Plan: See above Time Spent With Patient Time with patient: 25 - 35 minutes Subjective Date/time seen: 02/01/21 14:57 Interval history: Date of service 02/01/2021: Patient reports still having shortness of breath with exertion when walking to the bathroom, then feels lightheaded, nauseous due to her SOB. She still has some chest pain when taking a deep breath and with coughing. she just has a dry cough. She does report feeling warm, but unsure if she has had a fever. Eating well, but does not like the food here. She denies any fevers, chills, nausea, vomiting, abdominal pain, or any other symptoms at this time. Review of Systems Review of Systems: All systems reviewed & are unremarkable except as noted in HPI and below Exam Narrative: General: 30-year-old woman sitting up in bed watching TV. Appears comfortable on 4L via NC. In no acute distress. Skin: No jaundice or cyanosis. Good skin turgor. Neck: Full range of motion. Supple. Respiratory: Decreased lung sound bilaterally. No bony chest wall tenderness. Cardiovascular: The heart has a regular rate and rhythm without murmur. Lower extremities: No lower extremity edema. Distal pulses are easily palpated. No calf tenderness to palpation. Gastrointestinal: The abdomen is soft, nontender and nondistended with active bowel sounds. Psychiatric: Lucid and oriented. Memory intact. Neurologic: No focal deficits. Speech is clear. No facial drooping. Objective Data Vital Signs Vital Signs: Vital Signs - 24 hr 01/31/21 16:00 01/31/21 20:00 01/31/21 20:37 Temperature 98.8 F Pulse Rate 73 74 83 Respiratory Rate 24 H Blood Pressure 131/69 Pulse Oximetry 95 95 92 01/31/21 20:58 02/01/21 00:00 02/01/21 04:00 Temperature 97.5 F L 97.9 F 97.2 F L Pulse Rate 75 63 63 Respiratory Rate 18 18 18 Blood Pressure 126/74 103/55 L 101/66 Pulse Oximetry 90 90 94 02/01/21 08:00 02/01/21 08:16 02/01/21 10:12 Temperature 96.9 F L Pulse Rate 66 69 Respiratory Rate 16 Blood Pressure 97/79 L Pulse Oximetry 95 96 02/01/21 10:34 02/01/21 12:00 02/01/21 13:20 Temperature 97.2 F L 96.3 F L Pulse Rate 69 70 73 Respiratory Rate 20 18 Blood Pressure 116/63 122/72 Pulse Oximetry 96 94 Intake/O
[2021-02-01] MEDS: SODIUM CHLORIDE NASAL GEL 14.1 GM 1 APPLIC NASAL (21:05)
[2021-02-02] VITALS (10 sets, daily range): BP systolic 117–155; BP diastolic 64–98; PULSE 55–69; RESP 14–20; TEMP 36.4–36.9; O2SAT 92–99
[2021-02-02] MEDS: guaiFENesin/DEXTROMETHORPHAN 10 ML UDC PO ×3 (07:05→20:29)
[2021-02-02 07:29] LABS: INR 0.9; Prothrombin Time 12.5 Seconds (11.1-14.7)
[2021-02-02 07:37] LABS: Alanine Aminotransferase 20 U/L (4-35); Estimated CRCL calculation 159 ml/min; Estimated Glomerular Filt Rate > 60
[2021-02-02] MEDS: ACETAMINOPHEN 325 MG TABLET 650 MG PO ×2 (09:55→16:19)
[2021-02-02] MEDS: ENOXAPARIN 40 MG/0.4 ML SYRINGE SUB-Q (09:56)
[2021-02-02] MEDS: ALBUTEROL SULFATE (*SP) AEROSOL 1 PUFF 2 PUFF INHALATION ×4 (10:01→20:51)
[2021-02-02] MEDS: SALINE 0.65% NAS SOLN 44 ML BTL 1 SPRAY NASAL (10:01)
[2021-02-02] MEDS: REMDESIVIR 100 MG/NS 250 ML 100 MG/250 ML BAG 250 MG IVPB (10:07)
[2021-02-02] MEDS: PANTOPRAZOLE 40 MG TABLET PO ×2 (11:31→20:24)
--- NOTE | 2021-02-02 14:51 | PM.IMPN ---
Progress Note: A&P Assessment and Plan (1) Acute respiratory failure due to COVID-19: Code(s): U07.1 - COVID-19; J96.00 - Acute respiratory failure, unspecified whether with hypoxia or hypercapnia Status: Acute Assessment and Plan: The patient is a 30 year old woman with no chronic medical conditions, who presented with SOB, body aches since 01/23/21 and tested positive for COVID 19. Symptoms continued to be worse and called EMS who found her to be 87% on RA. She was placed on oxygen and brought to the ER for further evaluation. Initial vitals showed stable blood pressure to 118/68, heart rate 96, increased respiratory rate 26, afebrile, 95% on 3 L via nasal cannula. Initial labs showed normal CBC with differential, normal coag panel other than elevated D-dimer at 0.71. Glucose elevated 111. Found to have elevated ferritin, LDH and CRP levels. She was admitted into the hospital for COVID pneumonia and acute respiratory failure with hyponatremia and placed on IV Remdesivir and dexamethasone. Patient is currently on 4 L via nasal cannula and needs 6L with exertion. She is to continue on dexamethasone and IV Remdesivir (#4) She did receive IV convalescent plasma 01/31/21 x1 Incentive spirometer Antitussives p.r.n., antipyretics p.r.n. Continue weaning oxygen as needed Albuterol inhaler q.i.d. and p.r.n. Lovenox subQ daily for DVT prophylaxis Continue monitoring in wean oxygen as tolerated. The patient was not vaccinated for COVID. (2) Pneumonia due to COVID-19 virus: Code(s): U07.1 - COVID-19; J12.82 - Pneumonia due to coronavirus disease 2018 Status: Acute Assessment and Plan: See above Time Spent With Patient Time with patient: 25 - 35 minutes Subjective Date/time seen: 02/02/21 14:51 Interval history: Date of service 02/02/2021: Patient reports still having shortness of breath with exertion when walking to the bathroom and standing at the bathroom sink to clean her face. She is still having some chest pain when taking a deep breath and with coughing. she just has a dry cough, with intermittent specks of blood. No overt signs clots or significant amount of blood. Eating well, but does not like the food here. She denies any fevers, chills, nausea, vomiting, abdominal pain, or any other symptoms at this time. Review of Systems Review of Systems: All systems reviewed & are unremarkable except as noted in HPI and below Exam Narrative: General: 30-year-old woman sitting up in bed with nurse at bedside. Appears comfortable on 4L via NC. In no acute distress. Skin: No jaundice or cyanosis. Good skin turgor. Neck: Full range of motion. Supple. Respiratory: Decreased lung sound bilaterally. No bony chest wall tenderness. Cardiovascular: The heart has a regular rate and rhythm without murmur. Lower extremities: No lower extremity edema. Distal pulses are easily palpated. No calf tenderness to palpation. Gastrointestinal: The abdomen is soft, nontender and nondistended with active bowel sounds. Psychiatric: Lucid and oriented. Memory intact. Neurologic: No focal deficits. Speech is clear. No facial drooping. Objective Data Vital Signs Vital Signs: Vital Signs - 24 hr 02/01/21 16:00 02/01/21 17:40 02/01/21 20:00 Temperature 97.3 F L Pulse Rate 72 74 69 Respiratory Rate 20 Blood Pressure 124/68 Pulse Oximetry 94 92 02/01/21 20:30 02/02/21 00:00 02/02/21 04:00 Temperature 97.9 F 97.6 F Pulse Rate 62 55 L Respiratory Rate 20 20 Blood Pressure 155/98 H 121/72 Pulse Oximetry 97 98 99 02/02/21 08:00 02/02/21 09:15 02/02/21 10:12 Temperature 98.4 F Pulse Rate 60 Respiratory Rate 14 Blood Pressure 125/66 Pulse Oximetry 97 96 95 02/02/21 12:00 Temperature 98.2 F Pulse Rate 69 Respiratory Rate 16 Blood Pressure 126/74 Pulse Oximetry 95
[2021-02-02] MEDS: SODIUM CHLORIDE NASAL GEL 14.1 GM 1 APPLIC NASAL (20:24)
[2021-02-03] VITALS (8 sets, daily range): BP systolic 112–142; BP diastolic 66–79; PULSE 57–82; RESP 16–22; TEMP 35.8–36.7; O2SAT 93–97
[2021-02-03] MEDS: guaiFENesin/DEXTROMETHORPHAN 10 ML UDC PO ×3 (03:58→20:07)
[2021-02-03 07:04] LABS: Hematocrit 39.6 % (37.0-47.0); Hemoglobin 12.3 g/dL (12.0-15.0); Mean Corpuscular HGB Conc 31.1 g/dl (32-36); Mean Corpuscular Hemoglobin 28.3 pg (26-34); Mean Platelet Volume 10.1 fl (7.4-10.4); Platelet Count Result 256 k/mm3 (150-375); Red Blood Count 4.35 M/mm3 (4.2-5.4); Red Cell Distribution Width 12.7 % (11.5-14.5); White Blood Count 6.9 K/mm3 (4.5-10.0)
[2021-02-03 07:13] LABS: Alanine Aminotransferase 21 U/L (4-35); Albumin Level 3.4 g/dL (3.5-5.1); Alkaline Phosphatase 44 U/L (38-126); Anion Gap 7 mmol/L (8-16); Aspartate Amino Transferase 25 U/L (14-36); Bilirubin,Total 0.3 mg/dL (0.2-1.3); Blood Urea Nitrogen 15 mg/dL (7-17); Calcium 8.3 mg/dL (8.4-10.2); Carbon Dioxide 27 mmol/L (22-30); Chloride 103 mmol/L (98-107); Estimated CRCL calculation 159 ml/min; Estimated Glomerular Filt Rate > 60; Glucose 119 mg/dL (65-110); Potassium 4.3 mmol/L (3.4-5.0); Sodium 137 mmol/L (137-145)
[2021-02-03] MEDS: ACETAMINOPHEN 325 MG TABLET 650 MG PO ×2 (07:25→20:06)
[2021-02-03 08:30] LABS: INR 0.9; Prothrombin Time 12.2 Seconds (11.1-14.7)
[2021-02-03] MEDS: ENOXAPARIN 40 MG/0.4 ML SYRINGE SUB-Q (09:12)
[2021-02-03] MEDS: ALBUTEROL SULFATE (*SP) AEROSOL 1 PUFF 2 PUFF INHALATION ×4 (09:13→20:52)
[2021-02-03] MEDS: PANTOPRAZOLE 40 MG TABLET PO ×2 (09:13→20:01)
[2021-02-03] MEDS: REMDESIVIR 100 MG/NS 250 ML 100 MG/250 ML BAG 250 MG IVPB (10:30)
--- NOTE | 2021-02-03 14:20 | PM.IMPN ---
Progress Note: A&P Assessment and Plan (1) Acute respiratory failure due to COVID-19: Code(s): U07.1 - COVID-19; J96.00 - Acute respiratory failure, unspecified whether with hypoxia or hypercapnia Status: Acute Assessment and Plan: The patient is a 30 year old woman with no chronic medical conditions, who presented with SOB, body aches since 01/23/21 and tested positive for COVID 19. Symptoms continued to be worse and called EMS who found her to be 87% on RA. She was placed on oxygen and brought to the ER for further evaluation. Initial vitals showed stable blood pressure to 118/68, heart rate 96, increased respiratory rate 26, afebrile, 95% on 3 L via nasal cannula. Initial labs showed normal CBC with differential, normal coag panel other than elevated D-dimer at 0.71. Glucose elevated 111. Found to have elevated ferritin, LDH and CRP levels. She was admitted into the hospital for COVID pneumonia and acute respiratory failure with hyponatremia and placed on IV Remdesivir and dexamethasone. Patient is currently on 4 L via nasal cannula and needs 6L with exertion. She is to continue on dexamethasone and IV Remdesivir (#5) She did receive IV convalescent plasma 01/31/21 x1 Incentive spirometer Antitussives p.r.n., antipyretics p.r.n. Continue weaning oxygen as needed Albuterol inhaler q.i.d. and p.r.n. Lovenox subQ daily for DVT prophylaxis Continue monitoring in wean oxygen as tolerated. The patient was not vaccinated for COVID. (2) Pneumonia due to COVID-19 virus: Code(s): U07.1 - COVID-19; J12.82 - Pneumonia due to coronavirus disease 2018 Status: Acute Assessment and Plan: See above Time Spent With Patient Time with patient: 25 - 35 minutes Subjective Date/time seen: 02/03/21 14:20 Interval history: Date of service 02/03/2021: Patient reports feeling slightly better today. Improved cough, SOB, but still having episodes of worsneing symptoms at this times. She is worried about taking a shower and becoming SOB. Otherwise eager to eat food her family brought in. She denies any fevers, chills, nausea, vomiting, abdominal pain, or any other symptoms at this time. Review of Systems Review of Systems: All systems reviewed & are unremarkable except as noted in HPI and below Exam Narrative: General: 30-year-old woman sitting up in bed about to eat some soup from [employer]. Appears comfortable on 4L via NC. In no acute distress. Skin: No jaundice or cyanosis. Good skin turgor. Neck: Full range of motion. Supple. Respiratory: Some improved air movement to bilateral lungs. IS at 1500. No bony chest wall tenderness. Cardiovascular: The heart has a regular rate and rhythm without murmur. Lower extremities: No lower extremity edema. Distal pulses are easily palpated. No calf tenderness to palpation. Gastrointestinal: The abdomen is soft, nontender and nondistended with active bowel sounds. Psychiatric: Lucid and oriented. Memory intact. Neurologic: No focal deficits. Speech is clear. No facial drooping. Objective Data Vital Signs Vital Signs: Vital Signs - 24 hr 02/02/21 16:00 02/02/21 20:00 02/02/21 20:56 Temperature 97.8 F 97.5 F L Pulse Rate 64 59 L Respiratory Rate 14 20 Blood Pressure 122/77 117/64 Pulse Oximetry 96 92 95 02/02/21 23:59 02/03/21 04:00 02/03/21 09:00 Temperature 97.5 F L 97.6 F 96.5 F L Pulse Rate 59 L 57 L 69 Respiratory Rate 20 18 18 Blood Pressure 117/64 142/79 H 124/76 Pulse Oximetry 95 95 97 02/03/21 09:13 02/03/21 13:11 Temperature 98.0 F Pulse Rate 63 Respiratory Rate 22 H Blood Pressure 127/74 Pulse Oximetry 93 97 Intake/Output Intake/Output: Intake & Output 01/31/21 02/01/21 02/02/21 02/03/21 23:59 23:59 23:59 23:59 Intake Total 1920 7 2000 1850 Output Total 600 6885 767 1456 Balance 1320 1788 8071 -572
[2021-02-03] MEDS: SODIUM CHLORIDE NASAL GEL 14.1 GM 1 APPLIC NASAL (20:01)
[2021-02-04] VITALS (12 sets, daily range): BP systolic 114–131; BP diastolic 61–84; PULSE 51–67; RESP 18–20; TEMP 36.2–36.9; O2SAT 93–97
[2021-02-04] MEDS: ALBUTEROL SULFATE (*SP) AEROSOL 1 PUFF 2 PUFF INHALATION ×4 (08:37→20:16)
[2021-02-04] MEDS: ENOXAPARIN 40 MG/0.4 ML SYRINGE SUB-Q (08:58)
[2021-02-04] MEDS: ACETAMINOPHEN 325 MG TABLET 650 MG PO ×3 (08:58→21:05)
[2021-02-04] MEDS: PANTOPRAZOLE 40 MG TABLET PO ×2 (08:58→21:05)
[2021-02-04] MEDS: guaiFENesin/DEXTROMETHORPHAN 10 ML UDC PO ×3 (08:58→21:06)
[2021-02-04 09:57] LABS: Prothrombin Time 12.9 Seconds (11.1-14.7)
[2021-02-04 10:04] LABS: Alanine Aminotransferase 24 U/L (4-35); Estimated CRCL calculation 159 ml/min; Estimated Glomerular Filt Rate > 60
[2021-02-04] MEDS: REMDESIVIR 100 MG/NS 250 ML 100 MG/250 ML BAG 250 MG IVPB (11:05)
--- NOTE | 2021-02-04 14:44 | PM.IMPN ---
Progress Note: A&P Assessment and Plan (1) Acute respiratory failure due to COVID-19: Code(s): U07.1 - COVID-19; J96.00 - Acute respiratory failure, unspecified whether with hypoxia or hypercapnia Status: Acute Assessment and Plan: The patient is a 30 year old woman with no chronic medical conditions, who presented with SOB, body aches since 01/23/21 and tested positive for COVID 19. Symptoms continued to be worse and called EMS who found her to be 87% on RA. She was placed on oxygen and brought to the ER for further evaluation. Initial vitals showed stable blood pressure to 118/68, heart rate 96, increased respiratory rate 26, afebrile, 95% on 3 L via nasal cannula. Initial labs showed normal CBC with differential, normal coag panel other than elevated D-dimer at 0.71. Glucose elevated 111. Found to have elevated ferritin, LDH and CRP levels. She was admitted into the hospital for COVID pneumonia and acute respiratory failure with hyponatremia and placed on IV Remdesivir and dexamethasone. Patient is currently on room air. She is to continue on dexamethasone and IV Remdesivir (#6) She did receive IV convalescent plasma 01/31/21 x1 Incentive spirometer Antitussives p.r.n., antipyretics p.r.n. Continue weaning oxygen as needed Albuterol inhaler q.i.d. and p.r.n. Lovenox subQ daily for DVT prophylaxis will order home oxygen evaluation for tomorrow morning. If patient is feeling well she may be able to be discharged home at that time Continue monitoring in wean oxygen as tolerated. The patient was not vaccinated for COVID. (2) Pneumonia due to COVID-19 virus: Code(s): U07.1 - COVID-19; J12.82 - Pneumonia due to coronavirus disease 2019 Status: Acute Assessment and Plan: See above Time Spent With Patient Time with patient: 25 - 35 minutes Subjective Date/time seen: 02/04/21 14:44 Interval history: Date of service 02/04/2021: Patient reports feeling slightly better today and is off oxygen. She feels fatigued after taking a bath. She does report some hot flashes. She still has a cough, little sputum production. Nasal congestion. She denies any fevers, chills, nausea, vomiting, abdominal pain, or any other symptoms at this time. Review of Systems Review of Systems: All systems reviewed & are unremarkable except as noted in HPI and below Exam Narrative: General: 30-year-old woman sitting up in bed watching TV. Appears fatigued, but comfortable on room air. In no acute distress. Skin: No jaundice or cyanosis. Good skin turgor. Neck: Full range of motion. Supple. Respiratory: Some improved air movement to bilateral lungs. No bony chest wall tenderness. Cardiovascular: The heart has a regular rate and rhythm without murmur. Lower extremities: No lower extremity edema. Distal pulses are easily palpated. No calf tenderness to palpation. Gastrointestinal: The abdomen is soft, nontender and nondistended with active bowel sounds. Psychiatric: Lucid and oriented. Memory intact. Neurologic: No focal deficits. Speech is clear. No facial drooping. Objective Data Vital Signs Vital Signs: Vital Signs - 24 hr 02/03/21 17:52 02/03/21 20:00 02/03/21 20:54 Temperature 97.8 F 97.0 F L Pulse Rate 64 59 L 82 Respiratory Rate 16 20 18 Blood Pressure 139/70 112/66 Pulse Oximetry 95 93 02/03/21 20:55 02/04/21 00:00 02/04/21 04:00 Temperature 97.2 F L 97.6 F Pulse Rate 65 51 L Respiratory Rate 20 20 Blood Pressure 131/84 119/78 Pulse Oximetry 95 95 94 02/04/21 08:00 02/04/21 08:38 02/04/21 09:00 Temperature 97.6 F Pulse Rate 52 L Respiratory Rate 18 Blood Pressure 122/82 Pulse Oximetry 97 95 94 02/04/21 09:07 02/04/21 11:59 02/04/21 12:00 Temperature 97.6 F Pulse Rate 59 L Respiratory Rate 18 Blood Pressure 114/66 Pulse Oximetry 94 97 97
[2021-02-04] MEDS: SODIUM CHLORIDE NASAL GEL 14.1 GM 1 APPLIC NASAL (21:06)
[2021-02-05] VITALS: BP 123/72; PULSE 54; RESP 18; TEMP 36.6; O2SAT 93
[2021-02-05 04:00] VITALS: BP 119/73; PULSE 50; RESP 16; TEMP 36.6; O2SAT 94
[2021-02-05 07:25] LABS: Hematocrit 41.3 % (37.0-47.0); Hemoglobin 12.7 g/dL (12.0-15.0); Mean Corpuscular HGB Conc 30.8 g/dl (32-36); Mean Platelet Volume 10.2 fl (7.4-10.4); Platelet Count Result 288 k/mm3 (150-375); Red Blood Count 4.54 M/mm3 (4.2-5.4); Red Cell Distribution Width 12.9 % (11.5-14.5); White Blood Count 10.4 K/mm3 (4.5-10.0)
[2021-02-05 07:37] LABS: Prothrombin Time 12.6 Seconds (11.1-14.7)
[2021-02-05 07:39] LABS: Alanine Aminotransferase 22 U/L (4-35); Albumin Level 3.4 g/dL (3.5-5.1); Alkaline Phosphatase 43 U/L (38-126); Anion Gap 6 mmol/L (8-16); Aspartate Amino Transferase 21 U/L (14-36); Bilirubin,Total 0.4 mg/dL (0.2-1.3); Blood Urea Nitrogen 19 mg/dL (7-17); Calcium 8.2 mg/dL (8.4-10.2); Carbon Dioxide 26 mmol/L (22-30); Chloride 101 mmol/L (98-107); Estimated CRCL calculation 159 ml/min; Estimated Glomerular Filt Rate > 60; Glucose 94 mg/dL (65-110); Potassium 4.5 mmol/L (3.4-5.0); Sodium 133 mmol/L (137-145)
[2021-02-05] MEDS: guaiFENesin/DEXTROMETHORPHAN 10 ML UDC PO (07:48)
[2021-02-05] MEDS: ACETAMINOPHEN 325 MG TABLET 650 MG PO (07:48)
[2021-02-05] MEDS: ENOXAPARIN 40 MG/0.4 ML SYRINGE SUB-Q (07:49)
[2021-02-05] MEDS: ALBUTEROL SULFATE (*SP) AEROSOL 1 PUFF 2 PUFF INHALATION (07:49)
[2021-02-05] MEDS: PANTOPRAZOLE 40 MG TABLET PO (07:49)
[2021-02-05 08:00] VITALS: BP 115/78; PULSE 67; RESP 20; TEMP 36.5; O2SAT 96
[2021-02-05 08:07] LABS: Basophils Absolute Auto 0.1 K/mm3 (0.0-0.1); Basophils Percent Auto 0.6 % (0.2-1.2); Eosinophils Percent Auto 0.1 % (0-4.4); Immature Granulocyte Percent A 2.9 % (0-0.5); Lymphocytes Absolute Auto 2.13 K/mm3 (0.9-3.2); Lymphocytes Percent Auto 20.5 % (18.3-44.2); Monocytes Absolute Auto 0.7 K/mm3 (0.1-0.6); Monocytes Percent Auto 6.3 % (2.6-8.5); Neutrophils Absolute Auto 7.3 K/mm3 (1.3-6.7); Neutrophils Percent Auto 69.6 % (45.5-73.1)
[2021-02-05 09:55] VITALS: PULSE 78; O2SAT 95
[2021-02-05 10:00] VITALS: PULSE 104; O2SAT 92
[2021-02-05] MEDS: REMDESIVIR 100 MG/NS 250 ML 100 MG/250 ML BAG 250 MG IVPB (10:23)
--- NOTE | 2021-02-05 10:57 | PCRCNOTE ---
HOME OXYGEN EVALUATION COMPLETE; PT. DOES NOT REQUIRE HOME OXYGEN. R.N. NOTIFIED.
--- NOTE | 2021-02-05 11:46 | PM.DS ---
DS: Admitting Diagnosis Admitting Diagnosis SOB DS: Discharge Diagnosis Discharge Diagnosis (1) Acute respiratory failure due to COVID-19: Code(s): U07.1 - COVID-19; J96.00 - Acute respiratory failure, unspecified whether with hypoxia or hypercapnia Status: Acute Assessment and Plan: The patient is a 30 year old woman with no chronic medical conditions, who presented with SOB, body aches since 01/23/21 and tested positive for COVID 19. Symptoms continued to be worse and called EMS who found her to be 87% on RA. She was placed on oxygen and brought to the ER for further evaluation. Initial vitals showed stable blood pressure to 118/68, heart rate 96, increased respiratory rate 26, afebrile, 95% on 3 L via nasal cannula. Initial labs showed normal CBC with differential, normal coag panel other than elevated D-dimer at 0.71. Glucose elevated 111. Found to have elevated ferritin, LDH and CRP levels. She was admitted into the hospital for COVID pneumonia and acute respiratory failure with hyponatremia and placed on IV Remdesivir and dexamethasone. She was on dexamethasone and IV Remdesivir for 6 days. She did receive IV convalescent plasma 01/31/21 x1 Currently she is on room air and her home oxygen evaluation showed she does not need oxygen upon discharge. Explained to the patient she needs a pulse oximeter. Continue monitoring oxygen saturations. [id number] medications as needed for symptoms. She will get dexamethasone for 4 more days of treatment. Patient need to follow up with primary care provider for further evaluation monitor. Patient understands and agrees the plan all questions answered. The patient was not vaccinated for COVID. recommended getting vaccinated in 2-3 months. (2) Pneumonia due to COVID-19 virus: Code(s): U07.1 - COVID-19; J12.82 - Pneumonia due to coronavirus disease 2018 Status: Acute Assessment and Plan: See above DS: Summary Hospital Course Hospital Course: See above Status at Discharge Cognitive/behavioral status at discharge: Stable, improved. Time Spent with Patient Time attestation: Total time spent providing and/or coordinating discharge services: 37 Time spent: Greater than 30 minutes Exam Narrative: General: 30-year-old woman sitting up in bed watching TV. Appears to have more energy today. Comfortable on room air. In no acute distress. Skin: No jaundice or cyanosis. Good skin turgor. Neck: Full range of motion. Supple. Respiratory: Some improved air movement to bilateral lungs. No bony chest wall tenderness. Cardiovascular: The heart has a regular rate and rhythm without murmur. Lower extremities: No lower extremity edema. Distal pulses are easily palpated. No calf tenderness to palpation. Gastrointestinal: The abdomen is soft, nontender and nondistended with active bowel sounds. Psychiatric: Lucid and oriented. Memory intact. Neurologic: No focal deficits. Speech is clear. No facial drooping. DS: Data Data Completed and Pending Labs on day of discharge: Labs from last 24 hours 02/05/21 02/05/21 02/05/21 07:09 07:08 07:08 WBC 10.4 H RBC 4.54 Hgb 12.7 Hct 41.3 MCV 91.0 MCH 28.0 MCHC 30.8 L RDW 12.9 Plt Count 288 MPV 10.2 Immature Gran % (Auto) 2.9 H Neut % (Auto) 69.6 Lymph % (Auto) 20.5 [place] % (Auto) 6.3 Eos % (Auto) 0.1 Baso % (Auto) 0.6 Lymph # (Auto) 2.13 [place] # (Auto) 0.7 H Eos # (Auto) 0.0 Baso # (Auto) 0.1 Abs Immat Gran (auto) 0.30 H Absolute Neuts (auto) 7.3 H Absolute Nucleated RBC 0.0 Nucleated RBC % 0.0 PT 12.6 INR 1.0 Sodium 133 L Potassium 4.5 Chloride 101 Carbon Dioxide 26 Anion Gap 6 L BUN 19 H Creatinine 0.60 L Estim Creat Clear Calc 159 Estimated GFR > 60 Glucose 94 Calcium 8.2 L Tot
[2021-02-05 12:00] VITALS: BP 121/65; PULSE 67; RESP 20; O2SAT 96
== END 2021-02-05 13:27 | disposition home or self-care (01) | DRG 137 ==
LOC: ANHED 16:30 → ANH3MEDSUR 01-31 07:27
PROVIDERS: Nurse Practitioner; Physician Assistant; Admitting Provider Internal Medicine; Emergency Provider Emergency Medicine; Visit Provider Physician Assistant
DX: U07.1 COVID-19 (principal); R50.9 Fever, unspecified; R51.9 Headache, unspecified; J02.9 Acute pharyngitis, unspecified; J12.82 Pneumonia due to coronavirus disease 2019; J96.00 Acute respiratory failure, unspecified whether with hypoxia or hypercapnia; E87.1 Hypo-osmolality and hyponatremia
CPT/HCPCS: 36415; 36430; 71045; 71275; 80048; 80053; 80076; 81025; 82565; 82728; 83036; 83615; 83735; 84145; 84443; 84460; 84484; 85025; 85027; 85380; 85610; 85730; 86140; 86900; 86901; 93005; 93970; 94618; 94640; 96365; 96367; 96375; 99285; A9270; J0131; J1100; J1200; J1650; J1885; J2405; J2765; J7040; P9059; Q9967

== ENCOUNTER 2021-02-20 09:47 | Emergency (ER) | payer OTHER, SELFPAY ==
--- NOTE | ~2021-02-20 | CT_ITS ---
EXAMINATION: CT abdomen pelvis w con DATE: 02/20/2021 13:03 INDICATION: Abdomen pain. TECHNIQUE: Computed tomography (CT) of the abdomen and pelvis was performed with 100 cc Omnipaque 350 intravenous contrast. The dose-length product was 1603.59 mGy-cm. Automated exposure control and ite rative reconstruction technique were employed. COMPARISON: 10/31/2020. FINDINGS: Patchy bilateral airspace disease, compatible with pneumonia, improved compared with 021. Heart size normal. No significant pleural or pericardial effusion. Status post cholecystectomy. Nonobstructive bowel gas pattern. Fatty infiltration of the liver. The spleen, pancreas, adrenal glan ds and kidneys are unremarkable. No significant vascular abnormality. No lymphadenopathy. No free air or free fluid. IMPRESSION: 1. No acute abdominal abnormality. 2: Improving patchy bilateral pneumonia. Reviewed, dictated and finalized at location A.
[2021-02-20 09:59] VITALS: BP 135/76; PULSE 107; RESP 24; TEMP 37; O2SAT 97
--- NOTE | 2021-02-20 10:05 | PC.NURSE ---
SI attempt was when pt. was in my 20s
[2021-02-20 11:11] VITALS: BP 113/66; PULSE 89; RESP 20; O2SAT 99
--- NOTE | 2021-02-20 11:25 | ED.GENADULT ---
HPI - General Adult General Chief complaint: Abdominal Pain Stated complaint: Abd Pain Time Seen by Provider: 02/20/21 11:09 Source: patient History of Present Illness HPI narrative: Patient is a 30 y/o female complaining of right upper abdominal pain for last 3 days. She describes her pain as sharp and rates it as 10/10. The pain radiates to her back. There is no alleviating or exacerbating factor. She has some nausea and diarrhea, but no vomiting. She has no dysuria. She states that she still has cough, SOB and weakness from recent COVID infection. Related Data Allergies Allergy/AdvReac Type Severity Reaction Status Date / Time No Known Allergies Allergy Verified 02/20/21 11:15 Review of Systems Constitutional: Constitutional: Denies chills, Denies fever(s), Denies headache(s) and Reports weakness Eyes: Eyes: Denies blurry vision ENT: Denies headache(s) and Denies neck pain Cardiovascular: Cardiovascular: Denies chest pain and Denies dyspnea Respiratory: Respiratory: Reports cough and Reports dyspnea Gastrointestinal: Gastrointestinal: Reports abdominal pain, Reports diarrhea, Reports nausea and Denies vomiting Genitourinary: Genitourinary: Denies hematuria and Denies dysuria Musculoskeletal: Musculoskeletal: Denies back pain and Denies neck pain Neurologic: Denies headache(s) and Denies weakness PMFSH Past Medical History Medical History History of migraine Surgical History Surgical History History of tonsillectomy Hx laparoscopic cholecystectomy Family History Family History Unknown Hypertension Diabetes mellitus Cerebrovascular accident Mother Gallbladder disease Grandparent Gallbladder disease Social History Social History Social History: The patient lives with her boyfriend who she desires to have the durable power insurance defense attorney for healthcare or her dad either 1. The patient desires to be a full code. The patient has no biological children. She never smoked. She denies any alcohol marijuana or illicit drugs. 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alized by the patient): Female Spiritual care concerns: No Exam Const: General: no acute distress and well developed Orientation/consciousness: oriented to person, oriented to place, oriented to time and patient oriented x3 HENMT: Head: normocephalic Ears: external ears normal General nose exam: Normal external nose present Eyes: General: appearance normal, both eyes and all related structures Conjunctivae: conjunctivae normal Neck: Neck: normal visual inspection and full ROM Chest: Chest palpation & inspection: normal inspection of the chest and no tenderness Resp: Effort & Inspection: normal respiratory effort Auscultation: clear to auscultation bilaterally Cardio: Rate: regular rate Rhythm: regular rhythm GI: GI Palp: No abdominal tenderness and Yes Soft to palpation Skin: General skin exam: normal color and turgor normal Neuro: General: oriented to person, oriented to place, oriented to time and patient oriented x3 Cognition (Neuro): normal cognition Extrem: General: normal to inspection, full ROM and no pedal edema Psych: Appearance: grossly normal Mental Status: mental status grossly normal Affect: normal affect Course Vital Signs Vital signs: Vital Signs Temperature 37.0 C 02/20/21 09:59 Pulse Rate 107 H 02/20/21 09:59 Respiratory Rate 24 H 02/20/21
[2021-02-20 12:28] LABS: Basophils Percent Auto 0.2 % (0.2-1.2); Eosinophils Absolute Auto 0.2 K/mm3 (0-0.3); Eosinophils Percent Auto 1.4 % (0-4.4); Hematocrit 38.6 % (37.0-47.0); Hemoglobin 12.3 g/dL (12.0-15.0); Immature Granulocyte Absolute 0.09 K/mm3 (0.00-0.031); Immature Granulocyte Percent A 0.7 % (0-0.5); Lymphocytes Absolute Auto 2.86 K/mm3 (0.9-3.2); Lymphocytes Percent Auto 22.5 % (18.3-44.2); Mean Corpuscular HGB Conc 31.9 g/dl (32-36); Mean Platelet Volume 9.7 fl (7.4-10.4); Monocytes Absolute Auto 0.7 K/mm3 (0.1-0.6); Monocytes Percent Auto 5.7 % (2.6-8.5); Neutrophils Absolute Auto 8.8 K/mm3 (1.3-6.7); Neutrophils Percent Auto 69.5 % (45.5-73.1); Platelet Count Result 267 k/mm3 (150-375); Red Blood Count 4.24 M/mm3 (4.2-5.4); Red Cell Distribution Width 14.7 % (11.5-14.5); White Blood Count 12.7 K/mm3 (4.5-10.0)
[2021-02-20] MEDS: KETOROLAC 30 MG/ML VIAL (*BKC) IV PUSH (12:41)
[2021-02-20] MEDS: SODIUM CHLORIDE 0.9% IV 1,000 ML 999 ML IV CONT (12:41)
[2021-02-20 12:44] LABS: Alanine Aminotransferase 17 U/L (4-35); Albumin Level 3.7 g/dL (3.5-5.1); Alkaline Phosphatase 60 U/L (38-126); Anion Gap 8 mmol/L (8-16); Aspartate Amino Transferase 21 U/L (14-36); Bilirubin,Total 0.6 mg/dL (0.2-1.3); Blood Urea Nitrogen 16 mg/dL (7-17); Calcium 8.5 mg/dL (8.4-10.2); Carbon Dioxide 26 mmol/L (22-30); Chloride 101 mmol/L (98-107); Estimated CRCL calculation 159 ml/min; Estimated Glomerular Filt Rate > 60; Glucose 85 mg/dL (65-110); Lipase 111 U/L (23-300); Potassium 4.3 mmol/L (3.4-5.0); Sodium 135 mmol/L (137-145)
[2021-02-20 13:04] LABS: Add Urine Microscopic? YES; Appearance Urine Cloudy (Clear); Bilirubin Urine Negative (Negative); Blood Urine Negative (Negative); Color Urine Yellow (Yellow); Glucose Urine UA Negative (Negative); Ketones Urine Negative (Negative); Leukocyte Esterase Ur 3+ LEU/UL (Negative); Nitrate Urine Negative (Negative); Protein Urine Negative (Negative); Specific Grav Ur 1.019 (1.001-1.035); Squamous Epithelial Cell Urine Many /hpf (Few); Urobilinogen Urine Negative mg/dL (<2.0); WBC Urine 31-50 /hpf
[2021-02-20 15:26] VITALS: BP 111/69; PULSE 70; RESP 16
== END 2021-02-20 15:27 | disposition home or self-care (01) ==
PROVIDERS: Emergency Medicine; Emergency Provider Emergency Medicine
DX: N39.0 Urinary tract infection, site not specified (principal); R10.11 Right upper quadrant pain; Z77.22 Contact with and (suspected) exposure to environmental tobacco smoke (acute) (chronic); Z86.16 Personal history of COVID-19
CPT/HCPCS: 36415; 74177; 80053; 81001; 81025; 83690; 85025; 87086; 87088; 96361; 96374; 99284; J1885; J7030; Q9967

== ENCOUNTER 2022-01-08 13:38 | Emergency (ER) | payer OTHER, SELFPAY ==
[2022-01-08 13:45] VITALS: BP 145/83; PULSE 91; RESP 18; TEMP 36.4; O2SAT 97
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
[2022-01-08] MEDS: METOCLOPRAMIDE HCL INJ 10 MG/2 ML VIAL IM (17:14)
[2022-01-08] MEDS: ACETAMINOPHEN 500 MG TABLET 1000 MG PO (17:14)
[2022-01-08 17:29] VITALS: BP 134/94; PULSE 88; RESP 18; O2SAT 100
== END 2022-01-08 17:31 | disposition home or self-care (01) ==
LOC: ANHED 17:03
PROVIDERS: Emergency Provider Emergency Medicine; PCP Nurse Practitioner Family
DX: S13.4XXA Sprain of ligaments of cervical spine, initial encounter (principal); S39.92XA Unspecified injury of lower back, initial encounter; Z77.22 Contact with and (suspected) exposure to environmental tobacco smoke (acute) (chronic); V43.62XA Car passenger injured in collision with other type car in traffic accident, initial encounter
CPT/HCPCS: 99283; A9270; J2765

== ENCOUNTER 2022-04-20 10:05 | Outpatient (CLI) | payer OTHER, SELFPAY ==
--- NOTE | ~2022-04-20 | MR_ITS ---
EXAMINATION: MR brain/brain stem wo con DATE: 04/20/2022 10:45 INDICATION: Migraine headache. TECHNIQUE: Magnetic resonance imaging (MRI) of the brain and brainstem was performed without intraven ous contrast. COMPARISON: Head CT 09/09/2013 FINDINGS: There is no intracranial hemorrhage, acute infarction, or abnormal intracranial mass lesion . The ventricles are normal in size. The mastoid air cells are normal. The orbits are normal. The par anasal sinuses are clear. IMPRESSION: 1. Normal brain. Reviewed, dictated and finalized at location A. OGRAPHER MOTION PICTURE IMPRESSION: 1. Normal brain.
== END 2022-04-20 10:06 | disposition home or self-care (01) ==
PROVIDERS: PCP Nurse Practitioner Family; Visit Provider Psychiatry & Neurology Neurology
DX: G43.909 Migraine, unspecified, not intractable, without status migrainosus (principal)
CPT/HCPCS: 70551

== ENCOUNTER 2022-06-22 01:53 | Day surgery (SDC) | payer OTHER, SELFPAY ==
[2022-06-08 13:45] VITALS: BMI 50.8
[2022-06-22 09:35] VITALS: BP 146/94; PULSE 74; RESP 17; TEMP 36.1; O2SAT 100; BMI 51.5
[2022-06-22] MEDS: LACTATED RINGERS 1,000 ML 150 ML IV CONT (09:49)
--- NOTE | 2022-06-22 10:05 | WPDANESEPPF ---
Anes - Initial Pre Proc Eval Procedure: Operation Date: 06/22/22 10:00 Proposed Procedures p Esophagogastroduodenoscopy - Binu Burger MD Date/Time: 06/22/22 10:05 Surgeon: Binu Burger MD Pre Op Diagnosis: GERD, Vomiting, Dysphagia, RUQP Patient Data Age: 32 Gender: F Height: 1.68 m Weight: 145 kg Last Vital Signs Temp 97 F L 06/22/22 09:35 Pulse 74 06/22/22 09:35 Resp 17 06/22/22 09:35 BP 146/94 H 06/22/22 09:35 Pulse Ox 100 06/22/22 09:35 O2 Del Method Room Air 06/22/22 09:35 Allergies Allergy/AdvReac Type Severity Reaction Status Date / Time No Known Allergies Allergy Verified 06/22/22 09:34 Home Medications Medication Instructions Recorded Confirmed Type albuterol sulfate 90 mcg/actuation 2 puff inhalation QIDRT PRN 02/05/21 06/22/22 Rx aerosol inhaler (Proventil HFA) shortness of breath or wheezing #6.7 grams acetaminophen 325 mg tablet 650 mg PO ONCE PRN pain #50 tabs 01/08/22 06/22/22 Rx (Tylenol) topiramate 50 mg tablet (Topamax) 100 mg PO BID #60 tabs 04/11/22 06/22/22 Rx omeprazole 40 mg capsule,delayed 40 mg PO BID #60 caps 06/05/22 06/22/22 Rx release metformin 500 mg tablet,extended 500 mg PO TID 06/08/22 06/22/22 History release 24 hr Patient hx anesthesia problems: none Family hx anesthesia problems: none Results Review: All pre-operative results and documents have been reviewed as part of the pre-operative evaluation. [facility] Past Medical History Medical History (Updated 06/05/22 @ 16:13 by Annamarie Flores APRN) History of migraine Obesity Surgical History Surgical History History of tonsillectomy Hx laparoscopic cholecystectomy Family History Family History Unknown Hypertension Diabetes mellitus Cerebrovascular accident Mother Gallbladder disease Grandparent Gallbladder disease Social History Social History Social History: The patient lives with her boyfriend who she desires to have the durable power county attorney for healthcare or her dad either 1. The patient desires to be a full code. The patient has no biological children. She never smoked. She denies any alcohol marijuana or illicit drugs. Smoking status: Never smoker Second hand tobacco smoke exposure: Yes (Mother) Alcohol intake: never Drinks per week: 1 Substance use: never Substance use type: does not use Lack of Transportation: No Lack of Food: Sometimes True Current Housing: I Have Housing Concerned About Future Housing: No Difficulty Paying Gas/Electric Bills: YES Difficulty Paying for Meds: YES Currently Unemployed: No Education: High School Diploma/GED Difficulty w/ Childcare or Family Care: No Living arrangements: with family Additional living arrangements comments: with boyfriend and three non-biological children Occupation/Education: occupation Additional occupation/education comments: self-employed with a [employer] service Gender identity (if verbalized by the patient): Female Spiritual care concerns: No Anes - Eval Final PreProcedure Day of Procedure 06/22/22 10:05 Patient weight: super morbidly obese Heart: regular rate and rhythm Lungs: clear to auscultation Airway: Mallampati scale class II Neurological: alert and oriented Last oral intake: >/= 8 hours ASA classification: III Emergent: no Anesthetic plan: proceed Anesthesia type and monitoring: general GIVS and standard monitoring Results Review: All pre-operative results and documents have been reviewed as part of the pre-operative evaluation. Informed Consent: The patient's anesthetic plan and its attendant risks and benefits were discussed with the patient/family/POA. Questions were solicited and answers provided to the satisfaction of the
--- NOTE | 2022-06-22 10:10 | WPDHPUPDATE1 ---
History and Physical Update Update Date/Time: 06/22/22 10:10 History and Physical has been reviewed, including an updated exam of the patient. There are NO changes in the patient's condition. Risks, benefits, and alternatives have been discussed and questions answered. Patient agrees to proceed with procedure.
[2022-06-22 10:27] VITALS: BP 104/66; PULSE 81; RESP 22; O2SAT 100
[2022-06-22 10:37] VITALS: BP 128/80; PULSE 75; RESP 25; O2SAT 100
[2022-06-22 10:47] VITALS: BP 127/78; PULSE 77; RESP 23; O2SAT 100
== END 2022-06-22 10:55 | disposition home or self-care (01) ==
PROVIDERS: PCP Nurse Practitioner Family; Visit Provider Internal Medicine Gastroenterology
PROC: 0DJ08ZZ Inspection of Upper Intestinal Tract, Via Natural or Artificial Opening Endoscopic (ICD-10-PCS; CPT 43235; principal; 2022-06-22 10:00)
DX: K44.9 Diaphragmatic hernia without obstruction or gangrene (principal); K22.2 Esophageal obstruction; K21.9 Gastro-esophageal reflux disease without esophagitis; Z79.51 Long term (current) use of inhaled steroids; Z79.84 Long term (current) use of oral hypoglycemic drugs; E66.01 Morbid (severe) obesity due to excess calories; Z68.43 Body mass index [BMI] 50.0-59.9, adult
CPT/HCPCS: 43239; 88305; J2704; J7120

== ENCOUNTER 2022-07-25 12:57 | Outpatient (CLI) | payer OTHER, SELFPAY ==
--- NOTE | ~2022-07-25 | CT_ITS ---
EXAMINATION: CT abdomen pelvis w con DATE: 07/25/2022 13:51 INDICATION: Abdominal pain TECHNIQUE: Computed tomography (CT) of the abdomen and pelvis was performed with 100 mL Omnipaque-350 intravenous contrast. Automated exposure control and iterative reconstruction technique were employe d. The dose-length product was 1452.82 mGy-cm. COMPARISON: None FINDINGS: Minimal dependent atelectasis in the bilateral lower lobes. Heart size is normal. No pericardial or p leural effusion. Small sliding-type hiatal hernia. Cholecystectomy clips the gallbladder fossa. Liver , spleen, pancreas, bilateral adrenal glands and kidneys are normal. Bowels including the appendix ar e normal. Bladder, anteverted uterus and bilateral adnexa are unremarkable. No free intraperitoneal g as or fluid. No pathologically enlarged abdominal or pelvic lymphadenopathy. Small fat-containing umb ilical hernia. 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 Small sclerotic bone islands at the right sacral ala and left supra-acetabular region. IMPRESSION: 1. No acute intra-abdominal/pelvic process. Normal appendix. 2. Small sliding-type hiatal hernia. Reviewed, dictated and finalized at location A. RNATIONAL ORGANIZER
== END 2022-07-25 12:58 | disposition home or self-care (01) ==
LOC: ANHIMG 12:58
PROVIDERS: PCP Nurse Practitioner Family; Visit Provider Nurse Practitioner Family
DX: R10.9 Unspecified abdominal pain (principal); K44.9 Diaphragmatic hernia without obstruction or gangrene
CPT/HCPCS: 74177; Q9967

== ENCOUNTER 2022-08-01 08:14 | Outpatient (CLI) | payer OTHER, SELFPAY ==
--- NOTE | ~2022-08-01 | XR_ITS ---
EXAMINATION: XR barium swallow modified DATE: 08/01/2022 08:43 INDICATION: Other dysphagia. TECHNIQUE: The patient was given barium-containing material of multiple consistencies to swallow by t karin speech pathologist while I performed fluoroscopy. Fluoroscopy exposure time was 0.5 minutes. The n umber of fluoroscopy images saved to the PACS was 1. Dose-area product was 0.6 Gy-cm^2. FINDINGS: The oral stage, pharyngeal stage, and cervical/esophageal stage of the swallow are normal. IMPRESSION: 1. Normal modified barium swallow. 2. Please refer to the speech therapy report for recommendations. Reviewed, dictated and finalized at location A. D MAP TECHNICIAN
--- NOTE | 2022-08-01 09:33 | REHSTMBS ---
Assessment and note entered by Esthela Jauregui, EXECUTIVE PILOT Modified Barium Swallow Evaluation Feeding Type Recommended Oral Food Consistency Regular, Level 7 Liquid Consistency Thin (0) ST Clinical Summary MODIFIED BARIUM SWALLOW STUDY This patient was seen for a Modified Barium Swallow study due to intermittent dysphagia. The patient reported that for some time she has become choked on hamburger, any type of hamburger from a hamburger on a bun to ground hamburger in spaghetti and in tacos. She stated that when she becomes choked, she starts coughing and can occasionally cough so hard that it causes herself to vomit. Patient also reported gagging on pills. Patient denied difficulty swallowing liquids at this time. Patient also reports a history of GERD and small hernia. She stated that she always feels like something is there in her throat at all times causing her to feel like she needs to swallow or cough/clear throat to clear whatever is in her throat. Patient was presented with thin liquid contrast medium per spoon and cup, pudding mixed with semi- solid contrast medium per spoon, and then micheal cracker piece and pieces of cut-up fruit both coated with the semi-solid mixture. Patient exhibited quick swallows with adequate laryngeal elevation and base of tongue retraction to move all material into the esophagus without evidence of penetration/aspiration and no residual in the valleculae or pharynx. Results indicate this patient's swallowing skills are within normal limits. She stated that at the completion of the test, she felt as if there was still residual in her throat causing her to have to continue dry swallowing however, she was shown the screen shot after her final presentation and there was no evidence of barium remaining on her tongue or in the throat. She voiced understanding. Patient was instructed in the use of head flexion, demonstrated and described by therapist to use when swallowing hamburger or other offending food items She voiced understanding. She may need instruction/reinforcement of gastroesophageal
== END 2022-08-01 08:15 | disposition home or self-care (01) ==
PROVIDERS: PCP Nurse Practitioner Family; Visit Provider Nurse Practitioner Family
DX: R10.9 Unspecified abdominal pain (principal); R13.19 Other dysphagia
CPT/HCPCS: 92611

== ENCOUNTER 2022-09-24 15:25 | Outpatient (CLI) | payer OTHER, SELFPAY ==
--- NOTE | 2022-09-24 | ECG_ITS ---
Measurements Intervals [place] Rate: 83 P: 42 GA: 149 QRS: 59 QRSD: 97 T: 35 QT: 373 QTc: 441 Interpretive Statements SINUS RHYTHM MILD NONSPECIFIC ST ABNORMALITY BORDERLINE ECG COMPARED TO ECG 01/30/2021 10:07:10 NO SIGNIFICANT CHANGES Electronically Signed On 09-25-2022 14:33:03 CDT by Bo Moreira M.D.
--- NOTE | ~2022-09-24 | XR_ITS ---
EXAMINATION: XR chest 2V Exam Date/Time: 09/24/2022 15:54 CDT HISTORY: MORBID OBESITY; denies card/pulm hx, non smoker Comparison: 07/20/2005, 01/30/2021; CTPA 01/30/2021. RESULT: Lines, tubes, and devices: None. Lungs and pleura: Low volumes in the lateral view with crowding, otherwise clear. Cardiomediastinal silhouette: Stable. Other: No acute osseous or upper abdominal finding. IMPRESSION: No acute cardiopulmonary process. Reviewed, dictated and finalized at location K.
== END 2022-09-24 15:26 | disposition home or self-care (01) ==
PROVIDERS: PCP Nurse Practitioner Family
DX: E66.01 Morbid (severe) obesity due to excess calories (principal); Z01.818 Encounter for other preprocedural examination; R94.31 Abnormal electrocardiogram [ECG] [EKG]
CPT/HCPCS: 71046; 93005

== ENCOUNTER 2023-04-19 08:13 | Emergency (ER) | payer OTHER, SELFPAY ==
[2023-04-19 08:22] VITALS: BP 128/76; PULSE 77; RESP 16; TEMP 36.8; O2SAT 99
--- NOTE | 2023-04-19 08:22 | ED.GENADULT ---
HPI - General Adult General Chief complaint: Upper Respiratory Infection Stated complaint: left ear pain,throat hurts, migraine Time Seen by Provider: 04/19/23 08:22 Source: patient, RN notes reviewed and old records reviewed Mode of arrival: ambulatory Limitations: no limitations History of Present Illness HPI narrative: 32-year-old female presents to the [facility] with complaints of left ear pain, sore throat and a migraine. Patient states her left ear pain and sore throat woke her up this morning about 2am. Has not taken anything for symptoms today. Patient reports that she did take Tylenol yesterday for her migraine that is been going on for 4 days. States it feels like her typical migraine. Denies any sensitivity a preschool program director sound. Denies any change in vision. Out of her sumatriptan. States that her migraine doctor has recently retired. Related Data Home Medications Medication Instructions Recorded Confirmed docusate sodium 100 mg capsule 100 mg PO DAILY 04/19/23 04/19/23 ergocalciferol (vitamin D2) 1,250 See Rx Instructions .Route .COMPLEX 04/19/23 04/19/23 mcg (50,000 unit) capsule polyethylene glycol 3350 17 17 g PO DAILY 04/19/23 04/19/23 gram/dose oral powder Allergies Allergy/AdvReac Type Severity Reaction Status Date / Time No Known Allergies Allergy Verified 04/19/23 08:22 Review of Systems Review of Systems: All systems reviewed & are unremarkable except as noted in HPI and below Constitutional: Constitutional: Reports as per HPI and Reports headache(s) Eyes: Eyes: Reports no additional eye complaints ENT: Reports as per HPI, Reports otalgia and Reports sore throat Cardiovascular: Cardiovascular: Reports no additional cardiovascular complaints, Denies chest pain and Denies dyspnea Respiratory: Respiratory: Reports no additional respiratory complaints, Denies chest congestion, Denies cough and Denies dyspnea Gastrointestinal: Gastrointestinal: Reports no additional gastrointestinal complaints, Denies abdominal pain, Denies nausea and Denies vomiting Musculoskeletal: Musculoskeletal: Reports no additional musculoskeletal complaints Integumentary/Breasts: Skin/Breast: Reports system reviewed and no additional complaints, except as docu Neurologic: Reports system reviewed and no additional complaints, except as documented Psychiatric: Psychiatric: Reports no additional psychiatric complaints Allergic/Immunologic: Allergic/Immunologic: Reports no additional allergic/immunologic complaints PMFSH Past Medical History Medical History (Updated 04/19/23 @ 08:53 by Judith Tellez APRN) History of migraine Obesity Surgical History Surgical History (Updated 04/19/23 @ 08:47 by Judith Tellez APRN) H/O gastric bypass History of tonsillectomy Hx laparoscopic cholecystectomy Family History Family History Unknown Hypertension Diabetes mellitus Cerebrovascular accident Mother Gallbladder disease Grandparent Gallbladder disease Social History Social History Social History: The patient lives with her boyfriend who she desires to have the durable power deputy prosecuting attorney for healthcare or her dad either 1. The patient desires to be a full code. The patient has no biological children. She never smoked. She denies any alcohol marijuana or illicit drugs. Smoking status: Never smoker Second hand tobacco smoke exposure: Yes (Mother) Alcohol intake: never Substance use: never Substance use type: does not use Lack of Transportation: No Lack of Food: Sometimes True Current Housing: I Have Housing Concerned About Future Housing: No Difficulty Paying Gas/Electric Bills: YES Difficulty Paying for Meds: YES Currently Unemployed: No Education: High School Diploma/GED Difficulty w/ Childcare or Family Care: No Living arrangements: with family George demarco
[2023-04-19 08:25] VITALS: BP 128/76; PULSE 77; RESP 16; TEMP 36.8; O2SAT 99
[2023-04-19] MEDS: KETOROLAC (*BKC) 60 MG/2 ML VIAL IM (08:44)
== END 2023-04-19 09:13 | disposition home or self-care (01) ==
PROVIDERS: Emergency Provider Nurse Practitioner; PCP Nurse Practitioner Family
DX: H66.92 Otitis media, unspecified, left ear (principal); G43.001 Migraine without aura, not intractable, with status migrainosus; E66.9 Obesity, unspecified; Z68.41 Body mass index [BMI] 40.0-44.9, adult; Z98.84 Bariatric surgery status
CPT/HCPCS: 96372; 99213; G0463; J1885

== ENCOUNTER 2023-05-02 10:47 | Emergency (ER) | payer OTHER, SELFPAY ==
--- NOTE | ~2023-05-02 | XR_ITS ---
EXAMINATION: XR chest 2V DATE: 05/02/2023 11:42 INDICATION: COVID-19 positive. TECHNIQUE: Frontal and lateral views of the chest were obtained. COMPARISON: Chest 2 views 09/24/2022 FINDINGS: There is no pneumonia, pleural effusion, or pneumothorax. The heart size is normal. IMPRESSION: 1. No acute cardiopulmonary disease. Reviewed, dictated and finalized at location A. EXPELLER
--- NOTE | 2023-05-02 10:55 | ED.URI ---
HPI - URI/Sore Throat General Chief Complaint: Upper Respiratory Infection Stated Complaint: COVID+ Time Seen by Provider: 05/02/23 10:51 Source: patient Mode of arrival: ambulatory Limitations: no limitations History of Present Illness HPI Narrative: Patient is a 32-year-old presents with positive at on COVID test today. Patient having congestion, sore throat, fatigue, decreased appetite, fever, body aches headache for 3 days. Patient's father from [employer] and has her concerned. Patient has taken Tylenol. History of bariatric surgery. Related Data Home Medications Medication Instructions Recorded Confirmed ergocalciferol (vitamin D2) 1,250 See Rx Instructions .Route .COMPLEX 04/19/23 05/02/23 mcg (50,000 unit) capsule polyethylene glycol 3350 17 17 g PO DAILY 04/19/23 05/02/23 gram/dose oral powder sfctwdig-etzfdpbw-vtat 45 mg-folic cap PO 05/02/23 acid 800 mcg-vit K 120 mcg capsule (Bariatric Multivitamins) Allergies Allergy/AdvReac Type Severity Reaction Status Date / Time No Known Allergies Allergy Verified 05/02/23 10:57 Review of Systems Review of Systems: All systems reviewed & are unremarkable except as noted in HPI and below Constitutional: Constitutional: Reports body ache(s), Denies chills, Reports fatigue, Reports fever(s), Reports headache(s), Reports malaise and Denies weakness Eyes: Eyes: Denies blurry vision, Denies itchy eyes and Denies loss of vision ENT: Denies otalgia, Reports headache(s), Reports nasal congestion, Denies sinus pain, Reports sinus pressure and Reports sore throat Cardiovascular: Cardiovascular: Denies chest pain, Denies irregular heart rhythm and Denies dyspnea Respiratory: Respiratory: Reports cough and Denies dyspnea Gastrointestinal: Gastrointestinal: Denies abdominal pain, Denies diarrhea, Denies nausea and Denies vomiting Musculoskeletal: Musculoskeletal: Denies back pain, Denies myalgias and Denies arthralgias Integumentary/Breasts: Skin/Breast: Denies pruritus and Denies rash Neurologic: Reports headache(s), Denies loss of vision and Denies weakness Psychiatric: Psychiatric: Reports no additional psychiatric complaints Endocrine: Endocrine: Reports fatigue Allergic/Immunologic: Allergic/Immunologic: Denies itchy eyes PMFSH Past Medical History Medical History History of migraine Obesity Surgical History Surgical History H/O gastric bypass History of tonsillectomy Hx laparoscopic cholecystectomy Family History Family History Unknown Hypertension Diabetes mellitus Cerebrovascular accident Mother Gallbladder disease Grandparent Gallbladder disease Social History Social History Social History: The patient lives with her boyfriend who she desires to have the durable power transactional attorney for healthcare or her dad either 1. The patient desires to be a full code. The patient has no biological children. She never smoked. She denies any alcohol marijuana or illicit drugs. Smoking status: Never smoker Second hand tobacco smoke exposure: Yes (Mother) Alcohol intake: never Substance use: never Substance use type: does not use Lack of Transportation: No Lack of Food: Sometimes True Current Housing: I Have Housing Concerned About Future Housing: No Difficulty Paying Gas/Electric Bills: YES Difficulty Paying for Meds: YES Currently Unemployed: No Education: High School Diploma/GED Difficulty w/ Childcare or Family Care: No Living arrangements: with family Additional living arrangements comments: with boyfriend and three non-biological children Occupation/Education: occupation 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
[2023-05-02 10:58] VITALS: BP 132/75; PULSE 87; RESP 16; TEMP 37.7; O2SAT 96
== END 2023-05-02 12:05 | disposition home or self-care (01) ==
PROVIDERS: Emergency Provider Nurse Practitioner Family; PCP Nurse Practitioner Family
DX: U07.1 COVID-19 (principal); E66.9 Obesity, unspecified; Z68.41 Body mass index [BMI] 40.0-44.9, adult
CPT/HCPCS: 71046; 87426; 99213; C9803; G0463

== ENCOUNTER 2023-06-06 07:16 | Outpatient (CLI) | payer OTHER, SELFPAY ==
[2023-06-06 08:31] LABS: Basophils Percent Auto 0.5 % (0.2-1.2); Eosinophils Absolute Auto 0.1 K/mm3 (0-0.3); Hematocrit 42.3 % (37.0-47.0); Hemoglobin 13.4 g/dL (12.0-15.0); Immature Granulocyte Absolute 0.01 K/mm3 (0.00-0.031); Immature Granulocyte Percent A 0.2 % (0-0.5); Lymphocytes Absolute Auto 1.64 K/mm3 (0.9-3.2); Lymphocytes Percent Auto 24.7 % (18.3-44.2); Mean Corpuscular HGB Conc 31.7 g/dl (32-36); Mean Corpuscular Hemoglobin 29.3 pg (26-34); Mean Corpuscular Volume 92.4 fl (80-100); Mean Platelet Volume 10.5 fl (7.4-10.4); Monocytes Absolute Auto 0.3 K/mm3 (0.1-0.6); Monocytes Percent Auto 5.1 % (2.6-8.5); Neutrophils Absolute Auto 4.5 K/mm3 (1.3-6.7); Neutrophils Percent Auto 67.5 % (45.5-73.1); Platelet Count Result 268 k/mm3 (150-375); Red Blood Count 4.58 M/mm3 (4.2-5.4); Red Cell Distribution Width 13.8 % (11.5-14.5); White Blood Count 6.7 K/mm3 (4.5-10.0)
[2023-06-06 08:44] LABS: Alanine Aminotransferase 16 U/L (6-35); Albumin Level 3.8 g/dL (3.5-5.1); Alkaline Phosphatase 61 U/L (38-126); Anion Gap 8 mmol/L (8-16); Aspartate Amino Transferase 21 U/L (14-36); Bilirubin,Total 0.4 mg/dL (0.2-1.3); Blood Urea Nitrogen 13 mg/dL (7-17); Calcium 8.7 mg/dL (8.4-10.2); Carbon Dioxide 27 mmol/L (22-30); Chloride 105 mmol/L (98-107); Cholesterol 102 mg/dL (0-200); Estimated Glomerular Filt Rate > 60; Glucose 88 mg/dL (65-110); HDL Direct 28 mg/dL; Magnesium 2.1 mg/dL (1.6-2.3); Phosphorus 3.4 mg/dL (2.5-4.5); Potassium 3.9 mmol/L (3.4-5.0); Sodium 140 mmol/L (137-145); Triglycerides 98 mg/dL (<150)
[2023-06-06 08:55] LABS: LDL Cholesterol Direct 60 mg/dL
[2023-06-06 08:56] LABS: Parathyroid Intact 123.4 pg/mL (7.5-53.5)
[2023-06-06 10:40] LABS: Vitamin D 25 Hydroxy 51.3 ng/mL
[2023-06-06 11:49] LABS: Iron 54 ug/dL (37-170)
[2023-06-06 12:00] LABS: Percent Iron Saturation 21 % (20-50)
[2023-06-10 11:47] LABS: Vitamin B1 31 nmol/L (8-30)
== END 2023-06-06 07:17 | disposition home or self-care (01) ==
PROVIDERS: PCP Nurse Practitioner Family; Visit Provider Nurse Practitioner Family
DX: E66.01 Morbid (severe) obesity due to excess calories (principal); K90.9 Intestinal malabsorption, unspecified; Z68.41 Body mass index [BMI] 40.0-44.9, adult
CPT/HCPCS: 36415; 80053; 80061; 82306; 82607; 82728; 82746; 83540; 83550; 83735; 83970; 84100; 84425; 85025

== ENCOUNTER 2023-08-12 12:37 | Emergency (ER) | payer OTHER, SELFPAY ==
[2023-08-12 12:55] VITALS: BP 128/65; PULSE 73; RESP 16; TEMP 36.7; O2SAT 98
--- NOTE | 2023-08-12 13:50 | ED.URI ---
HPI - URI/Sore Throat General Chief Complaint: Upper Respiratory Infection Stated Complaint: Sinus Time Seen by Provider: 08/12/23 13:50 Source: patient, RN notes reviewed and old records reviewed Mode of arrival: ambulatory Limitations: no limitations History of Present Illness HPI Narrative: 33-year-old female presents to [facility] with complaint of bilateral ear discomfort, cough, congestion for 4 days. Patient endorsed hoarseness and loss of voice for 3 days. patient able to speak in complete sentences. No shortness of breath or signs of distress. Patient able to tolerate fluids by mouth. Related Data Home Medications Medication Instructions Recorded Confirmed polyethylene glycol 3350 17 17 g PO DAILY 04/19/23 05/02/23 gram/dose oral powder scqsoojz-lswabznk-mfcc 45 mg-folic 1 cap PO DAILY 05/02/23 acid 800 mcg-vit K 120 mcg capsule (Bariatric Multivitamins) docusate sodium 100 mg capsule 100 mg PO DAILY 08/12/23 08/12/23 Allergies Allergy/AdvReac Type Severity Reaction Status Date / Time No Known Allergies Allergy Verified 08/12/23 12:59 Review of Systems Review of Systems: All systems reviewed & are unremarkable except as noted in HPI and below Constitutional: Constitutional: Reports no additional constitutional complaints, Denies chills and Denies headache(s) Eyes: Eyes: Reports no additional eye complaints ENT: Reports system reviewed and no additional complaints, except as documented, Reports otalgia ( bilateral), Reports hoarseness, Reports nasal congestion, Reports nasal discharge and Reports sore throat Cardiovascular: Cardiovascular: Reports no additional cardiovascular complaints, Denies chest pain and Denies dyspnea Respiratory: Respiratory: Reports no additional respiratory complaints, Reports cough and Denies dyspnea Musculoskeletal: Musculoskeletal: Reports no additional musculoskeletal complaints Neurologic: Reports system reviewed and no additional complaints, except as documented Psychiatric: Psychiatric: Reports no additional psychiatric complaints [facility] Past Medical History Medical History History of migraine Obesity Surgical History Surgical History H/O gastric bypass History of tonsillectomy Hx laparoscopic cholecystectomy Family History Family History Unknown Hypertension Diabetes mellitus Cerebrovascular accident Mother Gallbladder disease Grandparent Gallbladder disease Social History Social History Social History: The patient lives with her boyfriend who she desires to have the durable power trial attorney for healthcare or her dad either 1. The patient desires to be a full code. The patient has no biological children. She never smoked. She denies any alcohol marijuana or illicit drugs. Smoking status: Never smoker Second hand tobacco smoke exposure: Yes (Mother) Alcohol intake: never Substance use: never Substance use type: does not use Lack of Transportation: No Lack of Food: Sometimes True Current Housing: I Have Housing Concerned About Future Housing: No Difficulty Paying Gas/Electric Bills: YES Difficulty Paying for Meds: YES Currently Unemployed: No Education: High School Diploma/GED Difficulty w/ Childcare or Family Care: No Living arrangements: with family Additional living arrangements comments: with boyfriend and three non-biological children Occupation/Education: occupation 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 There is no r
== END 2023-08-12 14:10 | disposition home or self-care (01) ==
PROVIDERS: Nurse Practitioner; Emergency Provider Nurse Practitioner Family; PCP Nurse Practitioner Family
DX: J06.9 Acute upper respiratory infection, unspecified (principal); J02.9 Acute pharyngitis, unspecified; Z20.822 Contact with and (suspected) exposure to COVID-19; E66.9 Obesity, unspecified; Z68.36 Body mass index [BMI] 36.0-36.9, adult; Z98.84 Bariatric surgery status
CPT/HCPCS: 87081; 87426; 87804; 87880; 99213; G0463

== ENCOUNTER 2023-09-08 11:33 | Emergency (ER) | payer OTHER, SELFPAY | END 2023-09-08 13:18 | disposition home or self-care (01) | PROVIDERS: Emergency Provider Nurse Practitioner; PCP Nurse Practitioner Family | DX: G43.909 Migraine, unspecified, not intractable, without status migrainosus (principal); H10.9 Unspecified conjunctivitis | CPT/HCPCS: 99213; G0463 ==

== ENCOUNTER 2023-12-17 13:09 | Emergency (ER) | payer OTHER, SELFPAY ==
[2023-12-17 13:22] VITALS: BP 121/67; PULSE 73; RESP 18; TEMP 36.4; O2SAT 100
[2023-12-17 14:30] VITALS: BP 126/74; PULSE 68; RESP 16; TEMP 36.7; O2SAT 98
[2023-12-17] MEDS: FLUORESCEIN SOD 1 MG/STRIP EACH EYE (14:37)
[2023-12-17] MEDS: TETRACAINE HCL 0.5% OPHTH SOLN 4 ML BTL 1 DROP EACH EYE (14:37)
[2023-12-17] MEDS: ACETAMINOPHEN 500 MG TABLET 1000 MG PO (14:37)
[2023-12-17 15:30] VITALS: BP 122/70; PULSE 70; RESP 16; TEMP 36.6; O2SAT 100
--- NOTE | 2023-12-17 15:46 | ED.GENADULT ---
HPI - General Adult General Chief complaint: Headache Stated complaint: Left eye pain Time Seen by Provider: 12/17/23 13:42 History of Present Illness HPI narrative: This is a 33-year-old female presenting with left eye pain. Patient states that she was working with oil diffuser last night. She is not sure she got some in her eye when she woke up this morning she had burning irritation of her left eye. No decreased visual acuity. Patient does use contacts and primary contacts in the last week. No foreign bodies noted. Related Data Home Medications Medication Instructions Recorded Confirmed polyethylene glycol 3350 17 17 g PO DAILY 04/19/23 05/02/23 gram/dose oral powder bxshxhav-yomgjipm-zhle 45 mg-folic 1 cap PO DAILY 05/02/23 acid 800 mcg-vit K 120 mcg capsule (Bariatric Multivitamins) docusate sodium 100 mg capsule 100 mg PO DAILY 08/12/23 08/12/23 Allergies Allergy/AdvReac Type Severity Reaction Status Date / Time No Known Allergies Allergy Verified 12/17/23 13:10 PMFSH Past Medical History Medical History History of migraine Obesity Surgical History Surgical History H/O gastric bypass History of tonsillectomy Hx laparoscopic cholecystectomy Family History Family History Unknown Hypertension Diabetes mellitus Cerebrovascular accident Mother Gallbladder disease Grandparent Gallbladder disease Social History Social History Social History: The patient lives with her boyfriend who she desires to have the durable power contracts attorney for healthcare or her dad either 1. The patient desires to be a full code. The patient has no biological children. She never smoked. She denies any alcohol marijuana or illicit drugs. Smoking status: Never smoker Second hand tobacco smoke exposure: Yes (Mother) Alcohol intake: never Substance use: never Substance use type: does not use Lack of Transportation: No Lack of Food: Sometimes True Current Housing: I Have Housing Concerned About Future Housing: No Difficulty Paying Gas/Electric Bills: YES Difficulty Paying for Meds: YES Currently Unemployed: No Education: High School Diploma/GED Difficulty w/ Childcare or Family Care: No Living arrangements: with family Additional living arrangements comments: with boyfriend and three non-biological children Occupation/Education: occupation 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 Head: atraumatic. EYES: EOMI, NOSE: Atraumatic NECK: Trachea midline RESPIRATORY: No increased rate of breathing CARDIOVASCULAR: RRR, ABDOMINAL: Non-distended MUSCULOSKELETAl: No obvious deformities NEURO: Alert. Moving 4/4 extremities SKIN:: Warm, dry. Normal color PSYCHIATRIC: Normal affect Eye exam: IOP 13 bilaterally, no fluorescein uptake on exam, no foreign bodies noted. Visual acuity decrease in left eye the patient does not have her contacts with her. Course Vital Signs Vital signs: Vital Signs Temperature 97.6 F 12/17/23 13:22 Pulse Rate 73 12/17/23 13:22 Respiratory Rate 18 12/17/23 13:22 Blood Pressure 121/67 12/17/23 13:22 Pulse Oximetry 100 12/17/23 13:22 Oxygen Delivery Room Air 12/17/23 13:22 Temperature 97.9 F 12/17/23 15:30 Pulse Rate 70 12/17/23 15:30 Respiratory Rate 16 12/17/23 15:30 Blood Pressure 122/70 12/17/23 15:30 Pulse Oximetry 100 12/17/23 15:30 Oxygen Delivery Room Air 12/17/23 13:22 Medical Decision Making MDM Narrative Medical decision making narrative: -Course: 33-year-old female presenting with left eye ir
[2023-12-17 16:30] VITALS: BP 126/70; PULSE 72; RESP 16; TEMP 36.5; O2SAT 100
== END 2023-12-17 17:10 | disposition home or self-care (01) ==
PROVIDERS: Emergency Provider Emergency Medicine; PCP Nurse Practitioner Family
DX: H57.12 Ocular pain, left eye (principal); Z98.84 Bariatric surgery status
CPT/HCPCS: 99283; A9270; J7030

== ENCOUNTER 2023-12-31 14:16 | Emergency (ER) | payer OTHER, SELFPAY ==
--- NOTE | ~2023-12-31 | CT_ITS ---
EXAMINATION: CT brain wo con DATE: 12/31/2023 18:09 INDICATION: Migraine headache. Left-sided visual changes. TECHNIQUE: Computed tomography (CT) of the head was performed without intravenous contrast. Sagittal and coronal reconstructions were performed. The mA was adjusted according to patient size. Iterative reconstruction technique was employed. The dose-length product was 605.33 mGy-cm. COMPARISON: Brain MR dated 04/20/2022 FINDINGS: No acute intracranial hemorrhage, acute infarction or abnormal extra axial fluid collection. Ventricl es are normal and symmetric. No mass/mass effect. The orbits, paranasal sinuses and mastoid air cells are normal. IMPRESSION: 1. Normal head CT. Reviewed, dictated and finalized at location A. IMPRESSION: 1. Normal head CT.
[2023-12-31 14:37] VITALS: BP 119/65; PULSE 75; RESP 16; TEMP 36.4; O2SAT 99
--- NOTE | 2023-12-31 17:18 | ECG_ITS ---
Test Date: 2023-12-31 17:56:02 Measurements Intervals [place] Rate: 68 P: 49 CA: 144 QRS: 37 QRSD: 100 T: 33 QT: 404 QTc: 431 Interpretive Statements SINUS RHYTHM NORMAL ECG No previous ECG available for comparison Electronically Signed On 12-31-2023 20:00:31 CDT by Shay Fry D.O.
--- NOTE | 2023-12-31 17:19 | ED.DIZZY ---
HPI - Dizziness General Chief Complaint: Dizziness <NYDIA Couch Last Filed: 12/31/23 17:29> Stated Complaint: dizziness& states she believes she is dehydrated <NYDIA Couch Last Filed: 12/31/23 17:29> Time Seen by Provider: 12/31/23 17:19 <NYDIA Couch Last Filed: 12/31/23 17:29> Focused HPI: Patient is a 33 y/o female, with pmh of gastric bypass, who presents to the ED with c/o migraine MYLES. Patient reports she had finished cleaning a house around noon today when she developed squiggly lines in her L eye. She then states she developed a migraine in her R temporal region approx 15-20 min later, described as a throbbing pain. Reports hx of migraines but denies previous hx of aura/vision changes prior to her migraines. She then became nauseous and dizzy/near syncopal and prompted here. She does still have a headache now. States it does currently feel similar to her previous migraines. She has not taken anything for pain. She notes she has not eaten today. Denies current vision changes, vision loss, vomiting, abd pain, syncope, focal weakness or numbness. GENERAL: Well-appearing, well-nourished, and in no acute distress. HEAD: Normocephalic, atraumatic. ENT: PERRLA, EOMI, conjunctiva clear. CHEST: Clear to auscultation. ?No respiratory distress. HEART: Regular rate and rhythm.? NEURO: ?Alert and oriented x3. No focal deficits. Patient screened in triage and initial orders placed.? ?Additional care and disposition to be based upon?diagnostic testing and treatment. <NYDIA Couch Last Filed: 12/31/23 17:29> Source: patient <NYDIA Couch Last Filed: 12/31/23 17:29> Mode of arrival: ambulatory <NYDIA Couch Last Filed: 12/31/23 17:29> Limitations: no limitations <NYDIA Couch Last Filed: 12/31/23 17:29> History of Present Illness HPI Narrative: This is a 33-year-old female with a past medical history significant for recurrent migraines. Today she states she had a headache with some visual changes that she described as floaters in her right eye. The floater sensation has since stopped she is now developing a migraine headache. Patient states her migraine is usually on the right side of her head and in her temporal bone. Does not radiate anywhere. No neck pain, stiffness, nausea, vomiting, persistent vision changes, chest pain, shortness breast, fever, chills. She was otherwise in her normal state of health. Denies any trauma. Does not take any blood thinner medications. <Abel Vitale MD - Last Filed: 12/31/23 21:27> Related Data Home Medications: Home Medications Medication Instructions Recorded Confirmed polyethylene glycol 3350 17 17 g PO DAILY 04/19/23 05/02/23 gram/dose oral powder bdukovbf-sbnabsuq-nqfd 45 mg-folic 1 cap PO DAILY 05/02/23 acid 800 mcg-vit K 120 mcg capsule (Bariatric Multivitamins) docusate sodium 100 mg capsule 100 mg PO DAILY 08/12/23 08/12/23 <Gabby Cottrell PA-C - Last Filed: 12/31/23 17:29> Allergies/Adverse Reactions: Allergies Allergy/AdvReac Type Severity Reaction Status Date / Time NSAIDS (Non-Steroidal AdvReac Unknown Verified 12/31/23 14:19 Anti-Inflamma <Gabby Cottrell PA-C - Last Filed: 12/31/23 17:29> Review of Systems Review of Systems: As reviewed above in the HPI <Abel Vitale MD - Last Filed: 12/31/23 21:27> [facility] Past Medical History Medical History: Medical History History of migraine Obesity <Gabby Cottrell PA-C - Last Filed: 12/31/23 17:29> Surgical History Surgical History: Surgical History H/O gastric bypass History of tonsillectomy Hx laparoscopic cholecystectomy <LISSETTE CouchC - Last File
[2023-12-31 17:32] LABS: Basophils Percent Auto 0.4 % (0.2-1.2); Eosinophils Percent Auto 0.5 % (0-4.4); Hematocrit 39.8 % (37.0-47.0); Hemoglobin 13.1 g/dL (12.0-15.0); Immature Granulocyte Absolute 0.01 K/mm3 (0.00-0.031); Immature Granulocyte Percent A 0.1 % (0-0.5); Lymphocytes Absolute Auto 1.49 K/mm3 (0.9-3.2); Lymphocytes Percent Auto 20.2 % (18.3-44.2); Mean Corpuscular HGB Conc 32.9 g/dl (32-36); Mean Corpuscular Hemoglobin 30.5 pg (26-34); Mean Corpuscular Volume 92.8 fl (80-100); Mean Platelet Volume 10.2 fl (7.4-10.4); Monocytes Absolute Auto 0.3 K/mm3 (0.1-0.6); Monocytes Percent Auto 4.3 % (2.6-8.5); Neutrophils Absolute Auto 5.5 K/mm3 (1.3-6.7); Neutrophils Percent Auto 74.5 % (45.5-73.1); Platelet Count Result 246 k/mm3 (150-375); Red Blood Count 4.29 M/mm3 (4.2-5.4); Red Cell Distribution Width 12.7 % (11.5-14.5); White Blood Count 7.4 K/mm3 (4.5-10.0)
[2023-12-31] MEDS: METOCLOPRAMIDE HCL INJ 10 MG/2 ML VIAL IV PUSH (17:33)
[2023-12-31] MEDS: diphenhydrAMINE HCl INJ 50 MG/ML VIAL 25 MG IV PUSH (17:33)
[2023-12-31] MEDS: ACETAMINOPHEN 500 MG TABLET 1000 MG PO (17:33)
[2023-12-31 17:41] LABS: Alanine Aminotransferase 18 U/L (6-35); Albumin Level 4.3 g/dL (3.5-5.1); Alkaline Phosphatase 69 U/L (38-126); Anion Gap 7 mmol/L (4-12); Aspartate Amino Transferase 21 U/L (14-36); Bilirubin,Total 0.3 mg/dL (0.2-1.3); Blood Urea Nitrogen 16 mg/dL (7-17); Calcium 8.8 mg/dL (8.4-10.2); Carbon Dioxide 26 mmol/L (22-30); Chloride 103 mmol/L (98-107); Estimated CRCL calculation 159 ml/min; Estimated Glomerular Filt Rate > 60; Glucose 94 mg/dL (65-110); Potassium 4.4 mmol/L (3.4-5.0); Sodium 136 mmol/L (137-145)
[2023-12-31 17:55] LABS: BEDSIDEPREGUCG Negative
[2023-12-31 18:04] LABS: Appearance Urine Clear (Clear); Bilirubin Urine Negative (Negative); Blood Urine Negative (Negative); Color Urine Yellow (Yellow); Glucose Urine UA Negative (Negative); Ketones Urine Negative (Negative); Leukocyte Esterase Ur Negative LEU/UL (Negative); Nitrate Urine Negative (Negative); Protein Urine Negative (Negative); Specific Grav Ur 1.026 (1.001-1.035)
[2023-12-31 18:10] LABS: Add Urine Microscopic? NO
[2023-12-31] MEDS: SODIUM CHLORIDE 0.9% IV 1,000 ML 999 ML IV CONT (18:26)
[2023-12-31] MEDS: dexAMETHasone SOD PHOS INJ 10 MG/ML 1 ML VIAL IV PUSH (19:47)
[2023-12-31 21:44] VITALS: BP 127/70; PULSE 67; RESP 18; O2SAT 99
== END 2023-12-31 21:44 | disposition home or self-care (01) ==
PROVIDERS: Physician Assistant; Emergency Provider Student in an Organized Health Care Education/Training Program
DX: G43.909 Migraine, unspecified, not intractable, without status migrainosus (principal)
CPT/HCPCS: 36415; 70450; 80053; 81003; 81025; 85025; 93005; 96361; 96374; 96375; 99284; A9270; J1100; J1200; J2765; J7030

== ENCOUNTER 2025-02-05 14:02 | Emergency (ER) | payer OTHER, SELFPAY ==
[2025-02-05 14:11] VITALS: BP 114/62; PULSE 77; RESP 20; TEMP 36.9; O2SAT 100
--- NOTE | 2025-02-05 14:26 | ED.EYEPROB ---
HPI - Eye Problem General Chief complaint: Eye Problems Stated complaint: left eye irritation Time Seen by Provider: 02/05/25 14:37 Source: patient and RN notes reviewed Mode of arrival: ambulatory Limitations: no limitations History of Present Illness HPI Narrative: 34 year old female presents with left eye stinging. She reports symptoms started yesterday. She reports light sensitivity, watering, and burning. She took her contacts out yesterday because of the pain. She says her eyes were not matted shut this morning. She has not used any aecq-uwi-mzkcxzc medications for it. MD chief complaint: eye pain Related Data Home Medications ?Medication ?Instructions ?Recorded ?Confirmed ?Last Taken ?Type iwcxwflv-srphfmvh-xsvw 45 mg-folic 1 cap PO DAILY 05/02/23 Unknown History acid 800 mcg-vit K 120 mcg capsule (Bariatric Multivitamins) acetaminophen 500 mg capsule 500 mg PO Q6H PRN fever or pain 03/11/24 02/05/25 Unknown History atogepant 60 mg tablet (Qulipta) 60 mg PO DAILY 03/11/24 Unknown History Allergies Allergy/AdvReac Type Severity Reaction Status Date / Time NSAIDS (Non-Steroidal AdvReac Unknown Verified 02/05/25 14:17 Anti-Inflamma Review of Systems Review of Systems: CONSTITUTIONAL: Denies malaise, chills, sweats, or fever. EYES: Denies visual changes. Reports left eye redness, irritation, watering discharge. ENT: Denies rhinorrhea, congestion, sinus pain, otalgia or sore throat. SKIN: Denies rash or itching. NEUROLOGIC: Denies numbness, weakness, or headache. PSYCHIATRIC: Denies anxiety or depression. All systems reviewed & are unremarkable except as noted in HPI and below PMFSH Past Medical History Medical History History of migraine Obesity Surgical History Surgical History H/O gastric bypass History of tonsillectomy Hx laparoscopic cholecystectomy Family History Family History Unknown Hypertension Diabetes mellitus Cerebrovascular accident Mother Gallbladder disease Grandparent Gallbladder disease Social History Social History Social History: The patient lives with her boyfriend who she desires to have the durable power assistant attorney general for healthcare or her dad either 1. The patient desires to be a full code. The patient has no biological children. She never smoked. She denies any alcohol marijuana or illicit drugs. Smoking status: Never smoker Second hand tobacco smoke exposure: Yes (Mother) Alcohol intake: never Substance use: never Substance use type: does not use Lack of Transportation: No Lack of Food: Sometimes True Current Housing: I Have Housing Concerned About Future Housing: No Difficulty Paying Gas/Electric Bills: YES Difficulty Paying for Meds: YES Currently Unemployed: No Education: High School Diploma/GED Difficulty w/ Childcare or Family Care: No Living arrangements: with family Additional living arrangements comments: with boyfriend and three non-biological children Occupation/Education: occupation 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 There is no relevant family history pertinent to the presenting complaint Exam Narrative: GENERAL: Well-appearing, well-nourished, and in no acute distress. HEAD: Normocephalic, atraumatic. EYES: PERRLA, sclera clear, and EOMI. No nystagmus. Left sclera and conjunctivae mildly injected. No corneal abrasion or foreign body noted upon Wood's lamp exam. Upper and lower eyelid unremarkable, no periorbital edema noted ENT: Nares clear, turbinates pink, no rhinorrhea or epistaxis. Mucous membranes moist. TM pearly joe with sharp light reflex bilaterally; no tragal tenderness. NECK: Supple. CHEST: No respiratory distress. Speaks in full sentences. HEART: Regular rate and rhythm. SKIN: Warm, dry, no visible rash. NEURO: Alert and oriented x3. PSYCH: Normal mood and affect Course Course Emergency Course: Patient is aware of diagnosis, understands and agrees to treatment plan. Anticipatory guidance given. Patient agrees to follow-up as directed and is aware of reasons to seek care at the emergency department. Portions of this record may have been created with voice recognition software Level of Care: Express Care Visit Vital Signs Vital signs: Vital Signs Temperature 98.5 F 02/05/25 14:11 Pulse Rate 77 02/05/25 14:11 Respiratory Rate 20 02/05/25 14:11 Blood Pressure 114/62 02/05/25 14:11 Pulse Oximetry 100 02/05/25 14:11 Oxygen Delivery Room Air 02/05/25 14:11 Temperature 98.5 F 02/05/25 14:11 Pulse Rate 77 02/05/25 14:11 Respiratory Rate 20 02/05/25 14:11 Blood Pressure 114/62 02/05/25 14:11 Pulse Oximetry 100 02/05/25 14:11 Oxygen Delivery Room Air 02/05/25 14:11 Reviewed. Procedures Other Procedure Procedure 1: Other Procedure: Tetracaine 1 gtt instilled in left eye, fluorescein stain applied. No Corneal abrasion noted upon byrnes lamp exam. Eye washed with NS 100 ml. No foreign bodies or Ramesh sign noted. MDM - Eye Problem MDM Narrative Medical decision making narrative: Consideration of the following conditions may be warranted for the presenting problem, they are not final diagnoses: Bacterial conjunctivitis, allergic conjunctivitis, viral conjunctivitis, foreign body, blepharitis, chalazion, hordeolum, corneal abrasion, preseptal cellulitis, orbital cellulitis. No evidence of proptosis, ophthalmoplegia, vision loss, pain with eye movement. Exam findings show no acute concerns or changes; patient is non-toxic appearing and is in no distress. Patient is appropriate for outpatient treatment and follow-up. Critical Care Time Critical Care Time Critical Care Time: No Discharge Plan Discharge Clinical Impression: Left eye pain Patient Disposition: Home Condition: Stable Instructions: How to Use Eye Drops (ED) Additional Instructions: Do not touch or rub your eye. Use a warm or cool washcloth on your eye for comfort Use eyedrops as directed Practice good handwashing and hygiene to prevent spread of infection You may take Tylenol or ibuprofen for pain Follow-up with PCP or medical officer if condition is not improving in 2-3days. Go to the emergency room if you have pain behind your eye, pressure behind your eye, difficulty seeing, or other severe symptoms Patient Language: Divehi Prescriptions: New polymyxin B sulf-trimethoprim 10,000 unit- 1 mg/mL drops 1 drp LEFT EYE Q3H 7 Days Qty: 10 0RF Rx Instructions: while awake; do not exceed 6 doses in 24 hours No Action Bariatric Multivitamins 45 mg iron- 800 mcg-120 mcg Capsule 1 cap PO DAILY acetaminophen 500 mg capsule 500 mg PO Q6H PRN (Reason: fever or pain) Qulipta 60 mg tablet 60 mg PO DAILY Patient Comments: currently not taking. needs new neurologist/migraine doc Follow-up/Referrals: UNKNOWN,DOCTOR [Primary Care Provider] Time of Disposition: 15:01
== END 2025-02-05 15:05 | disposition home or self-care (01) ==
PROVIDERS: Emergency Provider Nurse Practitioner
DX: H57.12 Ocular pain, left eye (principal); E66.9 Obesity, unspecified; Z68.36 Body mass index [BMI] 36.0-36.9, adult; Z98.84 Bariatric surgery status
CPT/HCPCS: 99213; A9270; G0463